=== PATIENT | female | born 2000 | race Caucasian/White ===

== ENCOUNTER 2022-03-21 13:39 | Emergency (ER) | payer MEDICAID, SELFPAY ==
[2022-03-21 13:53] VITALS: BP 121/71; PULSE 105; RESP 18; TEMP 36.7; O2SAT 99
--- NOTE | 2022-03-21 15:09 | W.ED.GENAD ---
Discharge Plan Disposition Patient Disposition: HOME Condition: Stable Discharge Details Clinical Impression: Nausea & vomiting Primary Care Provider: Unknown,Unknown ED Provider: Aravind Santos Home Meds and New Rx's Prescriptions: New nitrofurantoin monohyd/m-cryst [Macrobid] 100 mg capsule 100 mg PO Q12H 5 Days Qty: 10 0RF Rx Instructions: must administer with a meal/food pyridoxine (vitamin B6) [Vitamin B-6] 25 mg tablet 25 mg PO TID Qty: 30 0RF Continued ondansetron 4 mg tablet,disintegrating 1 tab PO PRN PRN Label Comments: DISSOLVE 1 TABLET IN MOUTH EVERY 4 TO 6 HOURS FOR 7 DAYS Discharge Instructions Instructions: Nausea and Vomiting in (ED) Additional Instructions: drink fluids to try and stay hydrated follow up as scheduled with your obgyn if you feel more ill, have worsening symptoms or severe pain return to the emergency department Medical Decision Making 21 yo g1 at approximately 18 weeks gestation comes in with chief complaint of n/v. She states almost her entire she has had n/v but has worsened over the past month. She sees Dr. Ana Lilia Soto at [facility] for her obgyn care and states she has been to [facility] a few times for similar symptoms. She denies any abdominal pain, fevers, dyspnea. She is in no distress on exam speaking in full sentences and has no abdominal tenderness. No vaginal bleeding or discharge. Her symptoms seems consistent with hyperemesis gravidarum and given lack of abdominal pain doubt surgical pathology such as cholecystitis, sbo, appendicits. Will treat with iv fluids, check ua for ketones and cmp for possible electrolyte abnormality and treat with metoclopramide as she has taken zofran with minimal relief. patient feeling better, tolerating po. Has some ketones in her urine but since she is now tolerating po do not feel d5 indicated. She does have bacteria in her urine, no urinary symptoms but given she is will treat with macrobid and add vitamin b6, she has f/u with obgyn , return precautions given Differential Diagnosis Differential Diagnosis: hyperemesis, morning sickness Lab Data Lab results reviewed: Yes I reviewed the patient's lab results. HPI General Mode of arrival: ambulatory. Date/Time Provider Initiated Documentation: 03/21/22 14:11. Limitations to Documentation: no limitations. Information obtained by: patient. History of Present Illness 21 year old F presents to the emergency department with the chief complaint of n/v, described as moderate, Patient started experiencing this month(s) (1) and it has been intermittent. No relieving factors improve symptom(s), No exacerbating factors reported . Patient notes no other symptoms.. Patient did receive the following treatments prior to arrival, none Related Data Home Medications Medication Instructions Recorded Confirmed nitrofurantoin 100 mg PO Q12H 5 days #10 caps 03/21/22 monohydrate/macrocrystals 100 mg capsule (Macrobid) ondansetron 4 mg disintegrating 1 tab PO PRN PRN 03/21/22 03/21/22 tablet pyridoxine (vitamin B6) 25 mg 25 mg PO TID #30 tabs 03/21/22 tablet (Vitamin B-6) Previous Rx's Medication Instructions Recorded nitrofurantoin 100 mg PO Q12H 5 days #10 caps 03/21/22 monohydrate/macrocrystals 100 mg capsule (Macrobid) pyridoxine (vitamin B6) 25 mg 25 mg PO TID #30 tabs 03/21/22 tablet (Vitamin B-6) General Stated Complaint: Nausea/Vomit/Diar BOO: 3 Review of Systems All systems reviewed & are unremarkable except as noted in HPI and below Constitutional Constitutional: Denies chills, Denies fever(s) and Denies weakness Cardiovascular Cardiovascular: Denies chest pain and Denies dyspnea Respiratory Respiratory: Denies cough and Denies dyspnea Gastrointestinal Gastrointestinal: Denies abdominal pain Genitourinary Genitourinary: Denies dysuria Neurologic Neurologic: Denies weakness PFSH All Active Problems (Updated 03/21/22 @ 17:39 by Aravind Santos MD) Nausea & vomiting (Acute) Social History Smoking/Tobacco Use Status: Never Smoking risk assessment performed?: Yes Drug use: Never Substance use type: does not use Do you feel safe at home: Yes Do you feel safe in your relationship?: Yes Exam Const General: no acute distress Orientation: alert HENMT Head: normal to inspection Ears: external ears normal General nose exam: external nose normal Mouth: moist mucous membranes Eyes General: appearance normal, both eyes and all related structures Neck Neck: normal visual inspection Resp Effort & Inspection: normal respiratory effort and able to speak in complete sentences Cardio Rate: regular rate GI Palpation: soft and nontender Skin General skin exam: no rashes or lesions noted Neuro General: patient alert and patient oriented x3 Extrem General: normal to inspection Psych Mental Status: mental status grossly normal Course Vital Signs Vital signs: Vital Signs Temperature 36.7 C 03/21/22 13:53 Pulse 105 H 03/21/22 13:53 Respiratory Rate 18 03/21/22 13:53 Blood Pressure 121/71 03/21/22 13:53 Pulse Oximetry 99 03/21/22 13:53 Temperature 36.7 C 03/21/22 13:53 Temperature Source Temporal Artery Scan 03/21/22 13:53 Pulse 105 H 03/21/22 13:53 Respiratory Rate 18 03/21/22 13:53 Blood Pressure 121/71 03/21/22 13:53 Blood Pressure Position Sitting 03/21/22 13:53 Pulse Oximetry 99 03/21/22 13:53 Oxygen Delivery Method Room Air 03/21/22 13:53 Oxygen Flow Rate 0 03/21/22 13:53
[2022-03-21] MEDS: Normal Saline 1,000 ML 1000 ML IV (15:13)
[2022-03-21] MEDS: Metoclopramide 10 MG/2 ML VIAL IVP (15:20)
[2022-03-21 15:29] LABS: Abs Immature Grans 0.05 10^3/uL (0.0-0.06); Absolute Basophil Count 0.03 10^3/uL (0.0-0.2); Absolute Eosinophil Count 0.12 10^3/uL (0.0-0.7); Absolute Lymphocyte Count 1.95 10^3/uL (1.2-3.4); Absolute Neutrophil Count 8.59 10^3/uL (1.2-6.7); Basophils % 0.3; HGB 11.9 g/dL (11.2-15.7); Immature Grans % 0.4; Lymphocytes % 16.9; MCH 26.2 pg (27.0-33.0); MCHC 31.3 % (32.0-36.0); MCV 84 fL (80-95); MPV 10.8 fL (8.0-11.0); Monocytes % 6.9; Neutrophils % 74.5; Platelet Count 315 10^3/uL (130-400); RBC 4.55 10^6/uL (3.93-5.22); RDW 14.1 % (11.7-14.6); RDW-SD 42.6 fL; WBC 11.53 10^3/uL (4.4-10.8)
[2022-03-21 15:37] LABS: ALT 23 U/L (14-59); AST 18 U/L (15-37); Alkaline Phosphatase 54 U/L (46-116); Anion Gap 10.8 mmol/L (3-11); BUN 6 mg/dL (7-18); Bilirubin, Total 0.3 mg/dL (0.2-1.0); CO2 22.2 mmol/L (21.0-32.0); CREATININE 0.6 mg/dL (0.55-1.02); Calcium 8.8 mg/dL (8.5-10.1); Chloride 104 mmol/L (98-107); Glucose 92 mg/dL (74-106); Magnesium 1.7 mg/dL (1.8-2.4); Potassium 3.8 mmol/L (3.5-5.1); Sodium 137 mmol/L (136-145); Total Protein 7.7 g/dL (6.4-8.2)
[2022-03-21 16:00] VITALS: BP 118/78; PULSE 101; RESP 18; O2SAT 99
[2022-03-21 16:22] LABS: Bilirubin Small (Negative); Blood Trace-intact (Negative); Clarity Clear (Clear); Glucose Negative (Negative); Ketones 80 mg/dL (Negative); Leukocyte Esterase Moderate (Negative); Nitrite Negative (Negative); Specific Gravity >= 1.030 (1.005-1.025)
[2022-03-21 16:40] LABS: WBC 20-50 HPF (0-5)
[2022-03-21 16:41] LABS: Bacteria Many HPF (Negative); C & S Indicated? No/Sq. Contamination; Casts Negative LPF (Negative); Crystals Negative HPF (Negative); Epithelial Cells Many HPF (Negative)
--- NOTE | 2022-03-21 17:05 | NUR.NOTE ---
Nursing Note: pT REPORTS FEELING MUCH BETTER AND NAUSEA RESOLVED AT THIS TIME. ADDITIONAL URINE SAMPLE REQUESTED D/T 1ST BEING CONTAMINATED.
--- NOTE | 2022-03-21 17:21 | NUR.NOTE ---
Nursing Note: PROVIDER AWARE PT UNABLE TO GIVE SECOND URINE. PT CURRENTLY BEING PO CHALLENGED, CONT. TO MONITOR.
[2022-03-21 17:25] VITALS: BP 115/78; PULSE 98; RESP 18; TEMP 37; O2SAT 99
[2022-03-21] MEDS: MacroBID 100 MG CAP PO (17:48)
[2022-03-21 18:03] VITALS: BP 113/64; PULSE 90; RESP 18; TEMP 36.9; O2SAT 99
== END 2022-03-21 17:58 | disposition home or self-care (01) ==
PROVIDERS: Emergency Provider Emergency Medicine
DX: O21.9 Vomiting of pregnancy, unspecified (principal); Z3A.18 18 weeks gestation of pregnancy; O99.891 Other specified diseases and conditions complicating pregnancy; R82.71 Bacteriuria; R82.4 Acetonuria
CPT/HCPCS: 36415; 80053; 96361; 96374; 99284; 81003; 81015; 83735; 85025; J2765

== ENCOUNTER → 2022-04-12 02:48 | Outpatient (CLI) | payer MEDICAID, SELFPAY ==
--- NOTE | 2022-04-12 | DI.US_ITS ---
Exam(s) US OB 2-3 TRIMESTER EXAM: US OB 2-3 TRIMESTER CLINICAL HISTORY: ANATOMY SCAN Z34.82. TECHNIQUE: Transabdominal obstetrical ultrasound performed. COMPARISON: No exams were available for comparison FINDINGS: Transabdominal obstetrical ultrasound performed. FINDINGS: Number of fetuses: 1 position: Cephalic heart rate: 136 bpm Placental location: There is a grade 1 posterior placenta. No evidence of previa. Amniotic fluid index: Within normal limits. ANATOMICAL SURVEY: Within normal limits. BIOMETRIC DATA: BPD: 5.4 cm-22 weeks 3 days HC: 19.11 cm=21 weeks 3 days AC: 16.5 cm=21 weeks 4 days FL: 4.01 cm=23 weeks Cisterna magna: 3.4mm Cerebellum: 2.02cm EFW: 476.65 g, 1 lb 1 oz, 93.8 % Composite Age: 22 weeks 1 day JAHAIRA:08/15/2022 Heart Rate:136 bpm IMPRESSION: 1. Single live intrauterine gestation as above. 2. Normal anatomic survey. DATA REPOSITORY:
== END ==
PROVIDERS: Visit Provider Family Medicine
DX: Z34.82 Encounter for supervision of other normal pregnancy, second trimester (principal)
CPT/HCPCS: 76805

== ENCOUNTER → 2022-07-07 00:22 | Outpatient (CLI) | payer MEDICAID, SELFPAY ==
--- NOTE | 2022-07-07 | DI.US_ITS ---
Exam(s) US OB MELITON WEIGHT EXAM: US OB MELITON WEIGHT CLINICAL HISTORY: SCREENING FOR MACROSOMIA Z36.88. COMPARISON: US US OB 2-3 TRIMESTER from 04/12/2022 TECHNIQUE: Transabdominal obstetrical ultrasound performed. FINDINGS: Sonographic images demonstrate a single intrauterine gestation in cephalic position. heart rate motion is Dopplered at: Bpm. Placenta: Posterior Amniotic fluid index: 11.5 cm. Largest pocket of fluid measures 3.5 cm. Amount of fluid is within nor mal limits. BPD 91 millimeters, 37+ 1 weeks, above the expected range. Head circumference 327 mm, 37+ 0 weeks, above the expected range. No hydrocephalus or other brain ab normality is visible. AC 295 millimeters, 33+3 weeks, at the low normal of the expected range. Femur length 64 millimeters, 33+ 0 weeks, at the low normal of expected range. Composite Biometric measurements correspond to 35 weeks 1 day, at the upper limits of normal of predi cted gestational age, as on the prior exam, with normal interval growth since prior exam. Estimated weight 44 percent. IMPRESSION: Single live intrauterine gestation as above. DATA REPOSITORY:
--- OUTSIDE RECORDS SUMMARY | 2022-07-07 00:25 | XMS_ITS | Encounter Summary ---
:2000 Author Organization [facility] Address [address] [place] [address] Care Team Providers Name Role Phone Unknown, Provider Primary Care Provider Encounter Details Date Type Department Care Team Description 01/11/2018 Historical Results [facility] - Rubina Mazariegos, Only [facility] DPM Results [address] [place] [address] [address] [place], [place] [address] (Wo rk) Social History Tobacco Use Types Packs/Day Years Used Date Smoking Tobacco: Never Assessed Sex Assigned at Date Recorded Not on file documented as of this encounter Plan of Treatment Not on filedocumented as of this encounter Procedures Procedure Name Priority Date/Time Associated Diagnosis Comme nts MR FOOT W WO 01/11/2018 15:07 Results for this CONTRAST LEFT EDT procedure are in the results section. documented in this encounter Results MR FOOT W WO CONTRAST LEFT (01/11/2018 15:07 EDT) Anatomical Region Laterality Modality Lower Extremities Left Other Specimen (Source) Anatomical Collection Method Collection Time Re ceived Time Location / / Volume Laterality 01/11/2018 15:07 EDT Narrative 01/11/2018 15:10 EDT ? EXAM: MAGNET[facility]ONANCE IMAGING/FOOT LT ??EX. D/ (1420) ? CLINICAL INFORMATION: ? L03.032 PARONCHIA OF TOE OF LEFT FOOT ? R/O OSTEOMYELITIS OF LEFT HALLUX ? FOOT LT WO/W CONTRAST ? Signs and Symptoms/Comments: L03. 032 PARONYCHIA OF TOE OF LEFT FOOT, ? R/O OSTEOMYELITIS OF LEFT HALLUX ? Comparison: Radiographs on 01/05/20 18. ? Technique: Contrast-enhanced MR o f the left foot was performed with ? the following sequences: Sagittal T1, sagittal STIR, coronal T1, ? coronal STIR, axial T1, axial STI R, and post gadolinium triplane T1 ? fat-sat. The [id number] was op timized for evaluation of the ? forefoot. 20 cc Magnevist intrave nous contrast were administered. ? FINDINGS: ? Bones: Focal soft tissue edema an d enhancement are present along the ? dorsal aspect of the great toe at the level of the toenail (sagittal ? STIR image 5). Mild bone marrow e jaja is present in the underlying ? 1st distal phalanx, greatest in t he tuft (axial STIR image 12). There ? is subtle loss of T1 signal in th e tuft of the 1st distal phalanx, ? greatest medially, corresponding to erosive changes on the preceding ? radiographs (axial T1 images 12, sagittal T1 image 6). These findings ? are suspicious for focal osteomye litis. No abnormal marrow signal is ? identified in the 1st proximal ph alanx or 1st metatarsal. ? Joints: The alignment of the fore foot is unremarkable. No joint ? effusion is identified. No signif icant degenerative changes are ? visible. The Lisfranc osteoligame ntous complex appears grossly ? intact. ? Soft tissues: Soft tissue swellin g along the dorsal aspect of the ? distal great toe is suspicious fo r cellulitis/soft tissue infection. ? No drainable or rim-enhancing flu id collection is identified. The ? visible portions of the major fle xor and extensor tendons appear ? grossly intact. ? IMPRESSION: ? 1. ??Focal marrow signal changes in the tuft of the 1st distal phalanx ? suspicious for osteomyelitis. ? 2. ??Soft tissue edema and enhanc ement along the dorsal aspect of the ? distal great toe, compatible with the provided history of soft tissue ? infection/paronychia. ? PAGE 1 ? Trina d Report ? (CONTINUED) ? 3. ??Additional findings detailed above. ? REPORT SIGNED IN OTHER VENDOR SYSTEM 01/11/2018 ?Reported B y: Greg Ly MD ? CC: Nkechi Mazariegos DPM ? Transcribed Date/Time: 01/11/2018 (1510) ? Circuit Recorder: ? Printed Date/Time: 01/24/2019 (12 33) ? PAGE 2 ? Trina d Report ? Procedure Note Greg Ly MD - 06/12/2019Format ting of this note might be different from the original. EXAM: MAGNETIC RESONANCE IMAGING/FOOT L T EX. D/ (1420) CLINICAL INFORMATION: L03.032 PARONCHIA OF TOE OF LEFT FOOT R/O OSTEOMYELITIS OF LEFT HALLUX FOOT LT WO/W CONTRAST Signs and Symptoms/Comments: L03.032 PA RONYCHIA OF TOE OF LEFT FOOT, R/O OSTEOMYELITIS OF LEFT HALLUX Comparison: Radiographs on 01/04/2018. Technique: Contrast-enhanced MR of the left foot was performed with the following sequences: Sagittal T1, s agittal STIR, coronal T1, coronal STIR, axial T1, axial STIR, and post gadolinium triplane T1 fat-sat. The [id number] was optimize d for evaluation of the forefoot. 20 cc Magnevist intravenous c ontrast were administered. FINDINGS: Bones: Focal soft tissue edema and enha ncement are present along the dorsal aspect of the great toe at the l evel of the toenail (sagittal STIR image 5). Mild bone marrow edema i s present in the underlying 1st distal phalanx, greatest in the tuf t (axial STIR image 12). There is subtle loss of T1 signal in the tuft of the 1st distal phalanx, greatest medially, corresponding to ero sive changes on the preceding radiographs (axial T1 images 12, sagitt al T1 image 6). These findings are suspicious for focal osteomyelitis. No abnormal marrow signal is identified in the 1st proximal phalanx or 1st metatarsal. Joints: The alignment of the forefoot i s unremarkable. No joint effusion is identified. No significant degenerative changes are visible. The Lisfranc osteoligamentous complex appears grossly intact. Soft tissues: Soft tissue swelling karel g the dorsal aspect of the distal great toe is suspicious for cell ulitis/soft tissue infection. No drainable or rim-enhancing fluid col lection is identified. The visible portions of the major flexor an d extensor tendons appear grossly intact. IMPRESSION: 1. Focal marrow signal changes in the t uft of the 1st distal phalanx suspicious for osteomyelitis. 2. Soft tissue edema and enhancement al main the dorsal aspect of the distal great toe, compatible with the p rovided history of soft tissue infection/paronychia. PAGE 1 Signed Report (CONTINUED) 3. Additional findings detailed above. REPORT SIGNED IN OTHER VENDOR SYSTEM 01/11/2018 Reported By: Greg Ly MD CC: Nkechi Mazariegos DPM Transcribed Date/Time: 01/11/2018 (9153 ) Circuit Recorder: Printed Date/Time: 01/24/2019 (7968) PAGE 2 Signed Report Nkechi Mazariegos DPM IMG MRI ORDERABLES documented in this encounter Visit Diagnoses Not on filedocumented in this encounter Care Teams Crisis Nurse Relationship Specialty Start Date End Date Unknown, Provider, PCP - General 01/04/18 07/01/19 documented as of this encounter
--- OUTSIDE RECORDS SUMMARY | 2022-07-07 00:25 | XMS_ITS | Encounter Summary ---
:2000 Author Organization [facility] Address [address] [place] [address] Care Team Providers Name Role Phone KellyIda mooney [employer] MECHANIC Primary Care Provider Encounter Details Date Type Department Care Team Description 05/16/2021 Results Only Imaging [facility] [place]arro Garza, [facility] Cardiology Clin ic [address] [place] [address] [place], [place] [phone] (Wo rk) Social History Tobacco Use Types Packs/Day Years Used Date Smoking Tobacco: Never Smokeless Tobacco: Never Sex Assigned at Date Recorded Not on file documented as of this encounter Plan of Treatment Not on filedocumented as of this encounter Procedures Procedure Name Priority Date/Time Associated Diagnosis Comme nts EKG 12-LEAD 05/16/2021 11:22 EDT Results for this procedure are i n the results section . documented in this encounter Results EKG 12-LEAD (05/16/2021 11:22 EDT) Specimen (Source) Anatomical Collection Method Collection Time Re ceived Time Location / / Volume Laterality 05/16/2021 11:22 EDT Narrative [facility] - 021 11:22 EDT ? [facility] ? Test Date: ?2021-05-16 11:22:40 Pat Name: ? SILVIA MANJINDER ?Department: ?Room: ? Gender: ? F ?Filling Layer Up: ?? RD : ?2000 ? Requested By: Order Number: ?Reading MD: ?? Chuck Leal, MD ? Measurements Intervals ?Lugoff ? Rate: ? 82 ? P: ?39 VT: ? 140 ?QRS: ?46 QRSD: ? 92 ? T: ?20 QT: ? 360 ? QTc: ?420 ? Interpretive Statements Normal sinus rhythm Normal ECG No previous ECG available for comparison Electronically Signed On 05-16-2021 12:4 3:56 EDT by Chuck Leal MD [email or web address] Procedure Note Chuck Leal MD - 05/16/2021Formatti ng of this note might be different from the original. [facility] Test Date: 2021-05-16 11:22:40 Pat Name: SILVIA TAN Department: Room: Gender: F Filling Layer Up: MUKESH : 2000 Requested By: Order Number: Reading MD: Chuck Leal MD Measurements Intervals Lugoff Rate: 82 P: 39 VT: 140 QRS: 46 QRSD: 92 T: 20 QT: 360 QTc: 420 Interpretive Statements Normal sinus rhythm Normal ECG No previous ECG available for comparison Electronically Signed On 05-16-2021 12:4 3:56 EDT by Chuck Leal MD [email or web address] Greg Garza MD CARDIAC ECG ORDERABLES Performing Organization Address City/State/ZIP Code Phon e Number [facility] [address] [facility] [place] [address] documented in this encounter Visit Diagnoses Not on filedocumented in this encounter Care Teams Professor Of Nursing Relationship Specialty Start Date End Date Ida Mendoza NP PCP - General 02/24/[address] [place] [address] documented as of this encounter
--- OUTSIDE RECORDS SUMMARY | 2022-07-07 00:25 | XMS_ITS | Clinical Summary ---
:2000 Author Organization [facility] Address [address] [place] [address] Care Team Providers Name Role Phone KellyIda Ronald PLASTER MAKER Primary Care Provider Allergies Active Allergy Reactions Severity Noted Date Comments Other - See Comments Hives High 07/03/2018 Cold Te mpertures Medications Medication Sig Dispensed Refills Start Date End Date Status cetirizine (ZYRTEC) 1 tab(s) orally 0 Active 10 mg tablet once a day EPINEPHrine (EPIPEN as directed 0 Active JR) 0.15 mg/0.3 mL injection etonogestreL Insert 68 mg 0 Acti ve (NEXPLANON) 68 mg subdermally once. subdermal implant ferrous sulfate 325 0 01/28/2021 Active mg (65 mg iron) tablet INCASSIA 0.35 mg 0 02/03/2021 Ac tive tablet Active Problems Problem Noted Date Family history of melanoma 05/11/2016 Surgical History Surgery Date Site/Laterality Comments FOOT SURGERY left hallux bone removal Social History Tobacco Use Types Packs/Day Years Used Date Smoking Tobacco: Never Smokeless Tobacco: Never Sex Assigned at Date Recorded Not on file Obstetrics History Last Filed Vital Signs Vital Sign Reading Time Taken Comments Blood Pressure 103/68 02/24/2021 1922 EDT Pulse 115 02/24/2021 1454 EDT Temperature 37.1 ??C (98.8 ??F) 02/24/2021 1454 EDT Respiratory Rate 17 02/24/2021 1454 EDT Oxygen Saturation 100% 02/24/2021 1922 EDT Inhaled Oxygen Concentration - - Weight 104.3 kg (230 lb) 02/24/2021 1454 EDT Height - - Body Mass Index - - Plan of Treatment Health Maintenance Due Date Last Done Comments Hepatitis C Screen 2000 Social Determinants Of Health (SDOH) 2000 COVID-19 Vaccine (#1) 02/22/1999 HPV Vaccines (1 - 2-dose series) 2009 Behavioral Health Screen 2010 Chlamydia Screening 2014 HIV Screening 2014 Advance Directive 2016 Preventive Care Visit 2016 Pertussis (Adult) Immunization 2017 Tetanus (Adult) Immunization 2017 Cervical Cancer Screening 2019 Influenza Immunization (Adult) (#1) 2022 Insurance Payer Benefit Plan / Subscriber ID Effective Phone Address T ype Group Dates [place]ICAID [place] [id number] 2020-Pres [address] [place] [id number] Silvia Tan Personal/Family Self 2000 [address] [place] [address] Silvia Tan Personal/Family Self 2000 [address]) [place] [address] Silvia Tan Personal/Family Self 2000 [address]) [place] [address] Silvia Tan Personal/Family Self 2000 [address]Home) [place] [address] Silvia Tan Personal/Family Self 2000 [address]Home) [place] [address] Silvia Tan Personal/Family Self 2000 [address]Home) [place] [address] Silvia Tan Personal/Family Self 2000 [address]Home) [place] [address] Care Teams Change Of Address Clerk Relationship Specialty Start Date End Date Ida Mendoza NP PCP - General 02/24/21 [address] [place] [address]
--- OUTSIDE RECORDS SUMMARY | 2022-07-07 00:25 | XMS_ITS | Encounter Summary ---
:2000 Author Organization [facility] Address [address] [place] [address] Care Team Providers Name Role Phone Ida Mendoza CRM ANALYST Primary Care Provider Reason for Visit Reason Comments Emesis Reports emesis x 3 since 053 0 AM. States unable to keep down PO fluids. Denies abdominal pain. Reports norm al elimination of bowel and bladder. Encounter Details Date Type Department Care Team Description 02/24/2021 Emergency [facility] Frankie Roberto Non-in tractable Emergency Department Laurie Rangel vomiting with nausea, - [facility] [address] [facility] unspecified vomiting [address] [facility] type (Primary Dx) [place] [address] [address], [place] [id number] (Wo rk) Social History Tobacco Use Types Packs/Day Years Used Date Smoking Tobacco: Never Smokeless Tobacco: Never Sex Assigned at Date Recorded Not on file COVID-19 Exposure Response Date Recorded In the last month, have you been in contact with No / Unsure 02/24/2021 14:55 EDT someone who was confirmed or suspected to have Coronavirus / COVID-19? documented as of this encounter Last Filed Vital Signs Vital Sign Reading Time Taken Comments Blood Pressure 103/68 02/24/2021 1922 EDT Pulse 115 02/24/2021 1454 EDT Temperature 37.1 ??C (98.8 ??F) 02/24/2021 1454 EDT Respiratory Rate 17 02/24/2021 1454 EDT Oxygen Saturation 100% 02/24/2021 1922 EDT Inhaled Oxygen Concentration - - Weight 104.3 kg (230 lb) 02/24/2021 1454 EDT Height - - Body Mass Index - - documented in this encounter Discharge Instructions Discharge InstructionsWolFrankie sood MD - 02/24/2021 19:14 EDT Drink plenty of fluids to stay well-hydrated. May use Zofran 1 tab every 8 hours as needed for nausea. Follow-up with your primary care physician as needed. Return to the Emergency Department (ED) if your condition worsens, does not improve as expected, or other new concerns arise. Specifically return if you have new or uncontrolled pain, high fever, difficulty breathing, vomiting and unable to keep down fluids or medications, or any other concerns. documented in this encounter Medications at Time of Discharge Medication Sig Dispensed Refills Start Date End Date cetirizine (ZYRTEC) 10 1 tab(s) orally once a 0 mg tablet day EPINEPHrine (EPIPEN JR) as directed 0 0.15 mg/0.3 mL injection etonogestreL (NEXPLANON) Insert 68 mg 0 68 mg subdermal implant subdermally once. ferrous sulfate 325 mg 0 01/28/2021 (65 mg iron) tablet INCASSIA 0.35 mg tablet 0 02/03/2021 documented as of this encounter Discharge Disposition Disposition Code Departure Means Destination Home or Self [facility] documented in this encounter ED Notes Frankie Roberto MD - 02/24/2021 1713 EDT DOS: 02/24/2021 Scribe Attestation: This documentation is recorded by Bozena Rutherford acting as Scribe under the direction and presence of Frankie Roberto MD. Frankie Roberto MD: I personally performed the services recorded by the scribe in my presence. I confirm the scribe's documentation has been reviewed by me to accurately and completely record my work, treatment, procedures, and medical decision making. Chief Complaint Chief Complaint Patient presents with ??? Emesis Reports emesis x 3 since 0530 AM. States unable to keep down PO fluids. Denies abdominal pain. Reports normal elimination of bowel and bladder. HPI Silvia L Britney is a pleasant 20 y.o. female who presents to the ED today with a chief complaint of emesis. Patient notes that she has vomited 3 times since 0530 this morning and cannot keep anything down. She notes that she felt fine yesterday. Patient denies any chance of and endorses a negative test 3 months ago, after her last sexual activity. She states that she has not had any prolonged exposure to heat. The patient has no significant past medical history. Patient presents to the ED with complaints of vomiting, aching from the waist down, chills. Patient denies hematemesis, diarrhea, fever, chest pain, SOB, abdominal pain, calf pain, or any other complaints. History was provided by: patient, medical records Patient's pertinent PMH, FH, and SH were reviewed and updated PRN. ROS Review of Systems Constitutional: Positive for chills. Negative for fever. Respiratory: Negative for shortness of breath. Cardiovascular: Negative for chest pain. Gastrointestinal: Positive for vomiting. Negative for abdominal pain and diarrhea. Negative for hematemesis Musculoskeletal: Positive for aching from the waist down. Negative for calf pain All other systems reviewed and are negative. The patient???s past medical, family, and social history was reviewed and updated as needed. Allergies Allergen Reactions ??? Other - See Comments Hives Cold Tempertures Physical Exam Vital Signs Vitals Reassessment?: Yes Temp: 37.1 ??C (98.8 ??F) Temp src: Temporal Pulse: (!) 115 Heart Rate: (!) 115 BPM Resp: 17 SpO2: 99 % BP: 105/86 BP MAP: 89 mm Hg BP Device: BP Machine BP Patient Position: Sitting BP Cuff Location: Left arm O2 Device: None (Room air) Physical Exam Vitals and nursing note reviewed. Constitutional: Appearance: Normal appearance. She is well-developed. HENT: Head: Normocephalic and atraumatic. Nose: Nose normal. Eyes: General: No scleral icterus. Pupils: Pupils are equal, round, and reactive to light. Cardiovascular: Rate and Rhythm: Regular rhythm. Tachycardia present. Pulses: Normal pulses. Heart sounds: Normal heart sounds. Pulmonary: Effort: Pulmonary effort is normal. No respiratory distress. Breath sounds: Normal breath sounds. No stridor. No wheezing, rhonchi or rales. Abdominal: General: Abdomen is flat. There is no distension. Palpations: Abdomen is soft. Tenderness: There is no abdominal tenderness. There is no guarding. Musculoskeletal: General: Normal range of motion. Cervical back: Normal range of motion and neck supple. Right lower leg: No edema. Left lower leg: No edema. Skin: General: Skin is warm and dry. Findings: No rash. Neurological: Mental Status: She is alert and oriented to person, place, and time. Psychiatric: Mood and Affect: Mood normal. Behavior: Behavior normal. Laboratory Results Labs Reviewed COMPLETE BLOOD COUNT AND DIFFERENTIAL - Abnormal Result Value Status WBC 8.16 Final RBC 4.56 Final Hemoglobin 11.9 Final HCT 37.8 Final MCV 83 Final MCH 26.1 (*) Final MCHC 31.5 (*) Final RDW-CV 13.4 Final RDW-SD 40.5 Final PLT 276 Final MPV 10.9 Final Neutrophils 78.7 Final Lymphocytes 12.3 Final Monocytes 7.4 Final Eosinophils 0.7 Final Basophils 0.5 Final Immature Grans 0.4 Final Absolute Neutrophils 6.43 Final Absolute Lymphocytes 1.00 (*) Final Absolute Monocytes 0.60 Final Absolute Eosinophils 0.06 Final Absolute Basophils 0.04 Final Absolute Immature Grans 0.03 Final Type of Differential: Auto Final COMPREHENSIVE METABOLIC PANEL (CMP) - Abnormal Sodium 141 Final Potassium 4.2 Final Chloride 108 Final CO2 Total 21 (*) Final Glucose 93 Final BUN 8 (*) Final Creatinine 0.54 Final eGFR 134 Final Total Protein 7.7 Final Albumin 4.5 Final Alkaline Phosphatase 60 Final AST 20 Final ALT 13 Final Bilirubin, Total <0.5 Final Calcium 9.5 Final Calculated Calcium 9.1 Final URINE SEDIMENT (MICRO) WITH REFLEX TO CULTURE - Abnormal Urine RBC Count, Auto 3 - 10 (*) Final Urine WBC Count, Auto >50 (*) Final Urine Squamous Count, Auto Moderate (*) Final Urine Hyaline Cast Count, Auto <=10 Final Urine Bacteria Count, Auto None Seen Final UA Small Round Cells Few Transitional Epithelial Cells (*) Final Narrative: A Urine Culture test has been reflexively ordered based on result criteria from the Urine Sediment Analysis. Urine Sediment Analysis results are unreliable on urines that are unrefrigerated for >2 hrs or refrigerated >8 hrs. POCT URINE DIPSTICK, CLINITEK - Abnormal Color, UA Yellow Final Clarity, UA Clear Final Glucose, UA Negative Final Bilirubin, UA Negative Final Ketones, UA Trace (*) Final Specific [place], Urine 1.020 Final Blood, UA 2+ (*) Final pH, UA 8.5 (*) Final Protein, UA 2+ (*) Final Urobilinogen, UA 0.2 Final Nitrite, UA Negative Final Leuk Esterase 2+ (*) Final HN LAB COMMENT (CLINITEK, UR) Test performed at Emergency Department Final LIPASE - Normal Lipase 113 Final BACTERIAL CULTURE, URINE EXTRA BLOOD DRAW (RAINBOW) Narrative: The following orders were created for panel order EXTRA BLOOD DRAW (RAINBOW). Procedure Abnormality Status --------- ------ HOLD GREEN TOP[[id number]] Final result HOLD LAVENDER TOP[[id number]] Final result HOLD SST[[id number]] Final result Please view results for these tests on the individual orders. HOLD GREEN TOP Hold Hold Final HOLD LAVENDER TOP Hold Hold Final HOLD SST Hold Hold Final POCT TEST, CLINITEK ORDER Narrative: The following orders were created for panel order POCT TEST, CLINITEK ORDER. Procedure Abnormality Status --------- ------ POCT TEST, CLI...[[id number]] Final result POCT CSN BARCODE URINE P...[[id number]] Final result Please view results for these tests on the individual orders. POCT URINE CLINITEK (DIPSTICK) - DOES NOT REFLEX Narrative: The following orders were created for panel order POCT URINE CLINITEK (DIPSTICK) - DOES NOT REFLEX. Procedure Abnormality Status --------- ------ POCT URINE DIPSTICK, CLI...[[id number]] Abnormal Final result POCT CSN BARCODE URINE D...[[id number]] Final result Please view results for these tests on the individual orders. POCT CSN BARCODE URINE PREG TEST POCT CSN BARCODE URINE DIPSTICK POCT TEST, CL[facility]ITEK UPT Result Negative Final HN LAB COMMENT (CLINITEK, UPT) Test performed at Emergency Department Final Patient had labs that were reviewed independently by myself, significant for CBC normal, CO2 21, chemistry otherwise normal, LFTs normal, lipase normal, urine test negative, >50 white cells with moderate squamous cells and no bacteria Procedures Procedures ED Course A medical screening was performed. The patient is a 20 y.o. female who presents to the ED with emesis. Physical exam was significant for tachycardic. Lungs CTAB. No bilateral leg swelling . Differential diagnosis includes but is not limited to dehydration, viral GI illness, electrolyte abnormality, UTI, . 1914: Hydrated with 1 L lactated ringers bolus. 190: On reevaluation, patient feels improved after IV fluid hydration. She declined Zofran and would like to go home. Patient discharged home with urine culture pending and Zofran starter pack and advised to follow up with her PCP. Prior to discharge usual and customary precautions were reviewed with the patient and/or family including follow-up instructions and reasons to return to the Emergency Department if condition worsens, does not improve as expected, or other new concerns arise. Final diagnoses: Non-intractable vomiting with nausea, unspecified vomiting type MDM MDM Number of Diagnoses or Management Options Non-intractable vomiting with nausea, unspecified vomiting type Diagnosis management comments: 4 Amount and/or Complexity of Data Reviewed Clinical lab tests: ordered and reviewed Patient Progress Patient progress: improved Disposition Discharged The patient's pain was managed to an adequate level weighing risk vs. Benefit of further medications. At the end of my care of this patient, the patient's pain was 0 on a zero to ten scale. Any further pain treatment will be at the discretion of the provider following up with the patient based on their clinical assessment. The patient's condition at the end of my care: Stable Kristel Schulz RN - 02/24/2021 5744 EDT Chief Complaint Patient presents with ??? Emesis Reports emesis x 3 since 0530 AM. States unable to keep down PO fluids. Denies abdominal pain. Reports normal elimination of bowel and bladder. documented in this encounter Plan of Treatment Not on filedocumented as of this encounter Procedures Procedure Name Priority Date/Time Associated Comments Diagnosis URINE SEDIMENT STAT 02/24/2021 17:56 Results f or this (MICRO) WITH REFLEX EDT procedur e are in TO CULTURE the results section. BACTERIAL CULTURE, Today 02/24/2021 17:56 Resul ts for this URINE EDT procedure are i n the results section. POCT TEST, STAT 02/24/2021 17:31 Res ults for this CLINITEK EDT procedure are i n the results section. POCT URINE DIPSTICK, STAT 02/24/2021 17:30 Res ults for this CLINITEK EDT procedure are i n the results section. POCT CSN BARCODE STAT 02/24/2021 17:28 URINE PREG TEST EDT POCT TEST, STAT 02/24/2021 17:28 Res ults for this CLINITEK ORDER EDT procedure are in the results section. POCT CSN BARCODE STAT 02/24/2021 17:28 URINE DIPSTICK EDT POCT URINE CLINITEK STAT 02/24/2021 17:28 Resu lts for this (DIPSTICK) - DOES NOT EDT proced ure are in REFLEX the results section. HOLD SST Routine 02/24/2021 16:55 Results for this EDT procedure are i n the results section. HOLD LAVENDER TOP Routine 02/24/2021 16:55 Result s for this EDT procedure are i n the results section. HOLD GREEN TOP Routine 02/24/2021 16:55 Results f or this EDT procedure are i n the results section. EXTRA BLOOD DRAW Routine 02/24/2021 16:55 Results for this (RAINBOW) EDT procedure are i n the results section. COMPLETE BLOOD COUNT STAT Add-on 02/24/2021 16:55 Res ults for this AND DIFFERENTIAL EDT procedure a re in the results section. LIPASE STAT Add-on 02/24/2021 16:55 Results for this EDT procedure are i n the results section. COMPREHENSIVE STAT Add-on 02/24/2021 16:55 Results fo r this METABOLIC PANEL (CMP) EDT proced ure are in the results section. documented in this encounter Results BACTERIAL CULTURE, URINE (02/24/2021 17:56 EDT) [facility] Method Time Signature Organism ID Less than 02/26/2021 [facility] 10,000 CFU/ml 10:59 EDT CENTER Usual LABORATORY urogenital SERVICES unruly. Specimen Anatomical Collection Method Collection Time Receive d Time (Source) Location / / Volume Laterality Urine URINE SPECIMEN Urine Collect / 02/24/2021 17:56 2020 COLLECTION, CLEAN Unknown EDT 18:21 EDT CATCH / Unknown Frankie Roberto MD MICROBIOLOGY - [facility] Performing Organization Address City/[facility]/ZIP Code Phon e Number [facility] [address] [place] [address] SERVICES (ABNORMAL) URINE SEDIMENT (MICRO) WITH REFLEX TO CULTURE (02/24/2021 17:56 EDT) [facility] Method Time Signature Urine RBC 3 - 10 (A) 0 - 2 02/24/2021 [facility] Count, Auto Cells/HPF 18:21 EDT CENTER LABORATORY SERVICES Urine WBC >50 (A) 0 - 3 02/24/2021 [facility] Count, Auto Cells/HPF 18:21 EDT CENTER LABORATORY SERVICES Urine Moderate (A) None Seen 02/24/2021 [facility] Squamous Cells/HPF 18:21 EDT CENTER Count, Auto LABORATORY SERVICES Urine Hyaline <=10 <=10 02/24/2021 [facility] Cast Count, Casts/LPF 18:21 EDT CENTER Auto LABORATORY SERVICES Urine None Seen None Seen 02/24/2021 [facility] Bacteria Bacteria/ 18:21 EDT CENTER Count, Auto HPF LABORATORY SERVICES UA Small Few Transitional None Seen 02/24/2021 [facility] Round Cells Epithelial Cells per HPF 18:21 EDT CENTER (A) LABORATORY SERVICES Specimen Anatomical Collection Method Collection Time Receive d Time (Source) Location / / Volume Laterality Urine URINE SPECIMEN Urine Collect / 02/24/2021 17:56 2020 COLLECTION, CLEAN Unknown EDT 18:01 EDT CATCH / Unknown Narrative [facility] SERVICES - 02/24/2021 18:21 EDT A Urine Culture test has been reflexively ordered based on result criteria from the Urine Sediment Analysis. Urine Sediment Analysis results are unre liable on urines that are unrefrigerated for >2 hrs or refrigerated >8 hrs. Frankie Roberto MD URINALYSIS ORDERABLES Performing Organization Address City/[facility]/ZIP Code Phon e Number [facility] [address] [place] [address] SERVICES POCT TEST, CLINITEK (02/24/2021 17:31 EDT) [facility] Method Time Signature UPT Result Negative Negative 02/24/2021 [facility] 17:37 EDT CENTER LABORATORY SERVICES HN LAB Test performed 02/24/2021 [facility] COMMENT at Emergency 17:37 EDT CENTER ([facility], Department LABORATORY UPT) SERVICES Comment: False negative results may occu r in women who are beyond 5-8 weeks gestation. Diagnosis of should be based on a correlation of test results with typical clinical signs and symptoms . Specimen Anatomical Collection Method Collection Time Receive d Time (Source) Location / / Volume Laterality Urine URINE SPECIMEN 02/24/2021 17:31 COLLECTION, CLEAN EDT 17:37 EDT CATCH / Unknown Frankie Roberto MD POINT OF CARE TEST ORDERABL ES Performing Organization Address City/State/ZIP Code Phon e Number [facility] [address] [place] [address] SERVICES (ABNORMAL) POCT URINE DIPSTICK, CLINITEK (02/24/2021 17:30 EDT) [facility] Method Time Signature Color, UA Yellow Yellow 02/24/2021 [facility] 17:32 T CENTER LABORATORY SERVICES Clarity, UA Clear Clear 02/24/2021 [facility] 17:32 [facility] LABORATORY SERVICES Glucose, UA Negative Negative 02/24/2021 [facility] mg/dL 17:32 [facility] LABORATORY SERVICES Bilirubin, UA Negative Negative 02/24/2021 [facility] 17:32 T CENTER LABORATORY SERVICES Ketones, UA Trace (A) Negative 02/24/2021 [facility] mg/dL 17:32 [facility] LABORATORY SERVICES Specific 1.020 1.001 - 02/24/2021 [facility] [place], 1.035 17:32 [facility] Urine LABORATORY SERVICES Blood, UA 2+ (A) Negative 02/24/2021 [facility] 17:32 [facility] LABORATORY SERVICES pH, UA 8.5 (A) <=8 02/24/2021 [facility] 17:32 T CENTER LABORATORY SERVICES Protein, UA 2+ (A) Negative 02/24/2021 [facility] mg/dL 17:32 [facility] LABORATORY SERVICES Urobilinogen, 0.2 0.2 - 1.0 02/24/2021 [facility] UA EU/dL 17:32 EDT CENTER LABORATORY SERVICES Nitrite, UA Negative Negative 02/24/2021 [facility] 17:32 T CENTER LABORATORY SERVICES Leuk Esterase 2+ (A) Negative 02/24/2021 [facility] 17:32 EDT CENTER LABORATORY SERVICES HN LAB Test performed 02/24/2021 [facility] COMMENT at Emergency 17:32 EDT CENTER (CL[facility], Department LABORATORY UR) SERVICES Specimen Anatomical Collection Method Collection Time Receive d Time (Source) Location / / Volume Laterality Urine URINE SPECIMEN 02/24/2021 17:30 COLLECTION, CLEAN EDT 17:32 EDT CATCH / Unknown Frankie Roberto MD POINT OF CARE TEST ORDERABL ES Performing Organization Address [facility]/ZIP Code Phon e Number [facility] [address] [place] [address] SERVICES POCT CSN BARCODE URINE DIPSTICK (02/24/2021 17:28 EDT) Specimen Anatomical Collection Method Collection Time Receive d Time (Source) Location / / Volume Laterality Urine URINE SPECIMEN Urine Collect / 02/24/2021 17:28 2020 COLLECTION, CLEAN Unknown EDT 17:28 EDT CATCH / Unknown Frankie Roberto MD LAB INFO SERVICE AND SUPPOR T & PHONE RESULT Performing Organization Address [facility]/ZIP Code Phon e Number [facility] [address] [place] [address] SERVICES POCT CSN BARCODE URINE PREG TEST (02/24/2021 17:28 EDT) Specimen Anatomical Collection Method Collection Time Receive d Time (Source) Location / / Volume Laterality Urine URINE SPECIMEN Urine Collect / 02/24/2021 17:28 2020 COLLECTION, CLEAN Unknown EDT 17:28 EDT CATCH / Unknown Frankie Roberto MD LAB INFO SERVICE AND SUPPOR T & PHONE RESULT Performing Organization Address [facility]/ZIP Code Phon e Number [facility] [address] [place] [address] SERVICES LIPASE (02/24/2021 16:55 EDT) athologist Signature Lipase 113 <251 U/L 02/24/2021 [facility] 17:30 EDT CENTER LABORATORY SERVICES Specimen Anatomical Collection Method / Collection Time Recei andre Time (Source) Location / Volume Laterality Blood VENOUS BLOOD / Venipuncture / 02/24/2021 16:55 021 Unknown Unknown EDT 16:58 EDT Frankie Roberto MD CHEMISTRY & BLOOD GAS ORDER LUIS ENRIQUE Performing Organization Address City/State/ZIP Code Phon e Number [facility] [address] [place] [address] SERVICES (ABNORMAL) COMPREHENSIVE METABOLIC PANEL (CMP) (02/24/2021 16:55 EDT) athologist Signature Sodium 141 136 - 145 02/24/2021 [facility] mEq/L 17:30 [facility] LABORATORY SERVICES Potassium 4.2 3.5 - 5.0 02/24/2021 [facility] mEq/L 17:30 [facility] LABORATORY SERVICES Chloride 108 96 - 110 02/24/2021 [facility] mEq/L 17:30 [facility] LABORATORY SERVICES CO2 Total 21 (L) 22 - 32 02/24/2021 [facility] mEq/L 17:30 [facility] LABORATORY SERVICES Glucose 93 70 - 100 02/24/2021 [facility] mg/dL 17:30 [facility] LABORATORY SERVICES BUN 8 (L) 10 - 26 02/24/2021 [facility] mg/dL 17:30 [facility] LABORATORY SERVICES Creatinine 0.54 0.52 - 1.04 02/24/2021 [facility] mg/dL 17:30 [facility] LABORATORY SERVICES eGFR 134 >60 02/24/2021 [facility] mL/min/1.73 17:30 ED CENTER m2 LABORATORY SERVICES Comment: eGFR calculated using CKD-EPI e quation for non- Americans. Multiply eGFR by 1.16 for patien ts. Total Protein 7.7 6.3 - 8.2 g/dL 02/24/2021 17:30 EDT [facility] SERVICES Albumin 4.5 3.4 - 4.9 g/dL 02/24/2021 17:30 EDT [facility] SERVICES Alkaline Phosphatase 60 38 - 126 U/L 02/24/2021 17:30 EDT [facility] SERVICES AST 20 15 - 46 U/L 02/24/2021 17:30 EDT [facility] LABORATORY SERVICES ALT 13 <35 U/L 02/24/2021 17:30 EDT [facility] LABORATORY SERVICES Bilirubin, Total <0.5 <1.4 mg/dL 02/24/2021 17:30 EDT [facility] LABORATORY SERVICES Calcium 9.5 8.5 - 10.5 02/24/2021 17:30 EDT [facility] mg/dL LABORATORY SERVICES Calculated Calcium 9.1 8.5 - 10.5 02/24/2021 17:30 EDT [facility] mg/dL LABORATORY SERVICES Specimen Anatomical Collection Method / Collection Time Recei andre Time (Source) Location / Volume Laterality Blood VENOUS BLOOD / Venipuncture / 02/24/2021 16:55 021 Unknown Unknown EDT 16:58 EDT Frankie Roberto MD CHEMISTRY & BLOOD GAS ORDER LUIS ENRIQUE Performing Organization Address City/State/ZIP Code Phon e Number [facility] [address] [place] [address] SERVICES (ABNORMAL) COMPLETE BLOOD COUNT AND DIFFERENTIAL (02/24/2021 16:55 EDT) [facility] gist Method Time Signature WBC 8.16 4.00 - 02/24/2021 [facility] 12.40 17:25 EDT CENTER K/cmm LABORATORY SERVICES RBC 4.56 3.86 - 02/24/2021 [facility] 5.04 17:25 EDT CENTER M/cmm LABORATORY SERVICES Hemoglobin 11.9 11.6 - 02/24/2021 [facility] 15.2 17:25 EDT CENTER gm/dL LABORATORY SERVICES HCT 37.8 34.9 - 02/24/2021 [facility] 44.4 % 17:25 EDT CENTER LABORATORY SERVICES MCV 83 81 - 98 02/24/2021 [facility] fl 17:25 EDT CENTER LABORATORY SERVICES MCH 26.1 (L) 26.7 - 02/24/2021 [facility] 33.3 pg 17:25 EDT CENTER LABORATORY SERVICES MCHC 31.5 (L) 32.1 - 02/24/2021 [facility] 35.9 17:25 EDT CENTER gm/dL LABORATORY SERVICES RDW-CV 13.4 <14.7 % 02/24/2021 [facility] 17:25 EDT CENTER LABORATORY SERVICES RDW-SD 40.5 <50.4 fl 02/24/2021 [facility] 17:25 EDT CENTER LABORATORY SERVICES PLT 276 141 - 377 02/24/2021 [facility] K/cmm 17:25 EDT CENTER LABORATORY SERVICES MPV 10.9 9.5 - 02/24/2021 [facility] 12.7 fl 17:25 EDT CENTER LABORATORY SERVICES Neutrophils 78.7 % 02/24/2021 [facility] 17:25 EDT CENTER LABORATORY SERVICES Lymphocytes 12.3 % 02/24/2021 [facility] 17:25 EDT CENTER LABORATORY SERVICES Monocytes 7.4 % 02/24/2021 [facility] 17:25 EDT CENTER LABORATORY SERVICES Eosinophils 0.7 % 02/24/2021 [facility] 17:25 EDT CENTER LABORATORY SERVICES Basophils 0.5 % 02/24/2021 [facility] 17:25 EDT CENTER LABORATORY SERVICES Immature Grans 0.4 % 02/24/2021 [facility] 17:25 EDT CENTER LABORATORY SERVICES Absolute 6.43 2.20 - 02/24/2021 [facility] Neutrophils 8.85 17:25 EDT CENTER K/cmm LABORATORY SERVICES Absolute 1.00 (L) 1.09 - 02/24/2021 [facility] Lymphocytes 3.30 17:25 EDT CENTER K/cmm LABORATORY SERVICES Absolute 0.60 0.10 - 02/24/2021 [facility] Monocytes 0.80 17:25 EDT CENTER K/cmm LABORATORY SERVICES Absolute 0.06 0.03 - 02/24/2021 [facility] Eosinophils 0.61 17:25 EDT CENTER K/cmm LABORATORY SERVICES Absolute 0.04 0.01 - 02/24/2021 [facility] Basophils 0.11 17:25 EDT CENTER K/cmm LABORATORY SERVICES Absolute 0.03 0.00 - 02/24/2021 [facility] Immature Grans 0.06 17:25 EDT CENTER K/cmm LABORATORY SERVICES Type of Auto 02/24/2021 [facility] Differential: 17:25 EDT CENTER LABORATORY SERVICES Specimen Anatomical Collection Method / Collection Time Recei andre Time (Source) Location / Volume Laterality Blood VENOUS BLOOD / Venipuncture / 02/24/2021 16:55 021 Unknown Unknown EDT 16:58 EDT Frankie Juan Carlos Felisa MD PACKAGES & DNA PROBE ORDERA BLES Performing Organization Address City/State/ZIP Code Phon e Number [facility] [address] [place] [address] SERVICES HOLD SST (02/24/2021 16:55 EDT) athologist Signature Hold Hold 02/24/2021 [facility] 18:01 EDT CENTER LABORATORY SERVICES Specimen Anatomical Collection Method / Collection Time Recei andre Time (Source) Location / Volume Laterality Blood VENOUS BLOOD / Venipuncture / 02/24/2021 16:55 021 Unknown Unknown EDT 16:58 EDT Nkechi Holley MD LAB INFO SERVICE AND SUPPORT & PHONE RESULT Performing Organization Address City/State/ZIP Code Phon e Number [facility] [address] [place] [address] SERVICES HOLD LAVENDER TOP (02/24/2021 16:55 EDT) athologist Signature Hold Hold 02/24/2021 [facility] 18:01 EDT CENTER LABORATORY SERVICES Specimen Anatomical Collection Method / Collection Time Recei andre Time (Source) Location / Volume Laterality Blood VENOUS BLOOD / Venipuncture / 02/24/2021 16:55 021 Unknown Unknown EDT 16:58 EDT Nkechi Holley MD LAB INFO SERVICE AND SUPPORT & PHONE RESULT Performing Organization Address City/State/ZIP Code Phon e Number [facility] [address] [place] [address] SERVICES HOLD GREEN TOP (02/24/2021 16:55 EDT) athologist Signature Hold Hold 02/24/2021 [facility] 18:01 EDT CENTER LABORATORY SERVICES Specimen Anatomical Collection Method / Collection Time Recei andre Time (Source) Location / Volume Laterality Blood VENOUS BLOOD / Venipuncture / 02/24/2021 16:55 021 Unknown Unknown EDT 16:58 EDT Nkechi Holley MD LAB INFO SERVICE AND SUPPORT & PHONE RESULT Performing Organization Address City/State/ZIP Code Phon e Number [facility] [address] [place] [address] SERVICES documented in this encounter Visit Diagnoses Diagnosis Non-intractable vomiting with nausea, un specified vomiting type - Primary documented in this encounter Administered Medications Inactive Administered Medications - up to 3 most recent administrations Medication Order MAR Action Action Date Dose Rate Site lactated ringers BOLUS 1,000 mL New Bag 02/24/2021 17:28 EDT 1,000 mL 1,000 mL, intravenous, NOW X1, 1 dose, On Anahi 02/24/21 at 1730, STAT ondansetron 4 mg ODT tab STARTER PACK Given 02/24/2021 19:19 EDT 1 Package 1 Package, oral, NOW X1, 1 dose, On Anahi 02/24/21 at 1915, STAT documented in this encounter Active and Recently Administered Medications Times are shown in EDT. Scheduled Medication Order 02/22/2021 02/23/2021 02/24/2021 lactated ringers BOLUS 1,000 mL (COMPLETED) 1728 (New Bag - Provider: Jenny Boyle, ULYSSES)1914 (Completed - Provider: Leydi Pedersen, ULYSSES) 1,000 mL, intravenous, NOW X1, 1 dose, On Anahi 02/24/21 at 1730, S TAT ondansetron (PF) (ZOFRAN) injection 4 mg 173 (Not Given - Provider: Jenny Boyle RN - Reason: Order parameters not met - Comment: Pt not nausous) 4 mg, intravenous, NOW X1, 1 dose, On Anahi 02/24/21 at 1730, STAT ondansetron 4 mg ODT tab STARTER PACK (COMPLETED) 191 (Given - Provider: Leydi Pedersen, ULYSSES) 1 Package, oral, NOW X1, 1 dose, On Anahi 02/24/21 at 1915, STAT documented in this encounter Orders Medications Ordered That Might Not Have Count Last Ord ered Date First Ordered Date Been Administered ondansetron (PF) (ZOFRAN) injection 4 mg 1 021 documented in this encounter Care Teams Auto Body Painter Relationship Specialty Start Date End Date Ida Mendoza, CRM ANALYST PCP - General 02/24/21 [address] [place] [phone] documented as of this encounter
--- OUTSIDE RECORDS SUMMARY | 2022-07-07 00:25 | XMS_ITS | Encounter Summary ---
:2000 Author Organization [facility] Address [address] [place] [address] Care Team Providers Name Role Phone Keith Ojeda APRN Primary Care Provider Encounter Details Date Type Department Care Team Description 04/20/2020 Travel Social History Tobacco Use Types Packs/Day Years Used Date Smoking Tobacco: Never Smokeless Tobacco: Never Sex Assigned at Date Recorded Not on file COVID-19 Exposure Response Date Recorded In the last month, have you been in contact with No / Unsure 04/20/2020 11:33 EDT someone who was confirmed or suspected to have Coronavirus / COVID-19? documented as of this encounter Plan of Treatment Not on filedocumented as of this encounter Visit Diagnoses Not on filedocumented in this encounter Care Teams Media Executive Relationship Specialty Start Date End Date Keith Ojeda APRN PCP - General 07/02/19 09/20/20 [address] [place] [phone] documented as of this encounter
--- OUTSIDE RECORDS SUMMARY | 2022-07-07 00:25 | XMS_ITS | Encounter Summary ---
:2000 Author Organization [facility] Address [address] [place] [address] Care Team Providers Name Role Phone KellyIda mooney COURT OPERATIONS CLERK Primary Care Provider Encounter Details Date Type Department Care Team Description 05/16/2021 Results Only Imaging [facility] - Daniel Reyes PA-C [facility] Radiology Resul ts [address] [facility] [address] [place] [phone] (Wo rk) Social History Tobacco Use Types Packs/Day Years Used Date Smoking Tobacco: Never Smokeless Tobacco: Never Sex Assigned at Date Recorded Not on file documented as of this encounter Plan of Treatment Not on filedocumented as of this encounter Procedures Procedure Name Priority Date/Time Associated Diagnosis Comme nts CT ANGIO CHEST PE 05/16/2021 14:28 Result s for this PROTOCOL EDT procedure are i n the results section. documented in this encounter Results CT ANGIO CHEST PE PROTOCOL (05/16/2021 14:28 EDT) Anatomical Region Laterality Modality Chest Computed Tomography Specimen (Source) Anatomical Collection Method Collection Time Re ceived Time Location / / Volume Laterality 05/16/2021 14:25 EDT Narrative 05/16/2021 14:28 EDT ? EXAM: CAT SCAN/CTA CHEST PE PROTOCOL ?EX. D/ (1418) ? CLINICAL INFORMATION: ? midsternal chest pain ? Exam: CTA chest. ? Indication: midsternal chest pain CHEST PAIN/ANEMIC ? Technique: Axial enhanced imaging of the chest was performed. CT 3-D ? shaded surface rendering was obta ined on a separate Vitrea 2 ? workstation. I actively participa mery in the monitoring of the 3-D ? reconstruction process for this e xam. ? Comparison:None. ? Findings: ? Neck base and axilla: No neck bas e or axillary adenopathy is seen. ? Scattered subcentimeter normal-ap pearing bilateral axillary nodes are ? present. The visualized portions of the thyroid gland are normal in ? appearance. ? Mediastinum and hilum: There is a anterior superior mediastinal 3 cm ? masslike slightly triangular stru cture (series 402 image 38). No ? hilar adenopathy is noted. There is a small amount of soft tissue in ? the right infrahilar area measuri ng approximately 2.2 x 0.5 cm ? (series 402 image 54). No pericar dial effusion is seen. The thoracic ? aorta maintains a normal caliber. ? Pulmonary arteries: No clear fill ing defect is seen within the ? opacified portions of the pulmona ry arterial system. ? Lungs: The lungs are clear. ? Pleura: No pleural effusion is se en. No pneumothorax is detected. ? Below the diaphragm: The visualiz ed portions of the liver spleen ? pancreas and adrenal glands are u nremarkable. ? Osseous: The thoracic vertebral b odies maintain normal height. No ? suspicious thoracic spine, sternu m or rib bone lesions are seen. ? IMPRESSION: ? 1. No pulmonary embolus detected. ? 2. The lungs are grossly clear. ? 3. Anterior superior mediastinal 3 cm masslike fullness. This tissue ? has a somewhat triangular shape a nd may reflect residual thymic ? tissue. Thymoma is less likely. P lease correlate clinically. ? REPORT SIGNED IN OTHER VENDOR SYSTEM 05/16/2021 ?Reported B y: Romaine Friedman MD ? CC: ? Transcribed Date/Time: 05/16/2021 (1428) ? Unit Control Clerk: HIS.[email or web address] ? Printed Date/Time: 05/16/2021 (14 28) ? PAGE 1 ? Trina d Report ? Procedure Note Romaine Friedman MD - 05/16/2021F ormatting of this note might be different from the original. EXAM: CAT SCAN/CTA CHEST PE PROTOCOL EX . D/ (1418) CLINICAL INFORMATION: midsternal chest pain Exam: CTA chest. Indication: midsternal chest pain CHEST PAIN/ANEMIC Technique: Axial enhanced imaging of th e chest was performed. CT 3-D shaded surface rendering was obtained o n a separate Thoundsa 2 workstation. I actively participated in the monitoring of the 3-D reconstruction process for this exam. Comparison:None. Findings: Neck base and axilla: No neck base or a xillary adenopathy is seen. Scattered subcentimeter normal-appearin g bilateral axillary nodes are present. The visualized portions of the thyroid gland are normal in appearance. Mediastinum and hilum: There is a anter ior superior mediastinal 3 cm masslike slightly triangular structure (series 402 image 38). No hilar adenopathy is noted. There is a s mall amount of soft tissue in the right infrahilar area measuring teddy roximately 2.2 x 0.5 cm (series 402 image 54). No pericardial e ffusion is seen. The thoracic aorta maintains a normal caliber. Pulmonary arteries: No clear filling de fect is seen within the opacified portions of the pulmonary art erial system. Lungs: The lungs are clear. Pleura: No pleural effusion is seen. No pneumothorax is detected. Below the diaphragm: The visualized por tions of the liver spleen pancreas and adrenal glands are unremar kable. Osseous: The thoracic vertebral bodies maintain normal height. No suspicious thoracic spine, sternum or r ib bone lesions are seen. IMPRESSION: 1. No pulmonary embolus detected. 2. The lungs are grossly clear. 3. Anterior superior mediastinal 3 cm m asslike fullness. This tissue has a somewhat triangular shape and may reflect residual thymic tissue. Thymoma is less likely. Please correlate clinically. REPORT SIGNED IN OTHER VENDOR SYSTEM 05/16/2021 Reported By: Romaine Friedman MD CC: Transcribed Date/Time: 05/16/2021 (4769 ) Unit Control Clerk: Printed Date/Time: 05/16/2021 (7028) PAGE 1 Signed Report Daniel Ryees PA-C IMG CT ORDERABLES documented in this encounter Visit Diagnoses Not on filedocumented in this encounter Care Teams Intranet Specialist Relationship Specialty Start Date End Date Ida Mendoza, ALANNAH PCP - General 02/24/21 [address] [place] [phone] documented as of this encounter
--- OUTSIDE RECORDS SUMMARY | 2022-07-07 00:25 | XMS_ITS | Encounter Summary ---
:2000 Author Organization [facility] Address [address] [place] [address] Care Team Providers Name Role Phone Unknown, Provider Primary Care Provider Encounter Details Date Type Department Care Team Description 01/04/2018 Historical Results [facility] - Rubina Mazariegos, Only [facility] Radiology DPM Results [address] [place] [address] [address] [place], [place] [phone] (Wo rk) Social History Tobacco Use Types Packs/Day Years Used Date Smoking Tobacco: Never Assessed Sex Assigned at Date Recorded Not on file documented as of this encounter Plan of Treatment Not on filedocumented as of this encounter Procedures Procedure Name Priority Date/Time Associated Comments Diagnosis XR TOE LEFT 2 OR 01/04/2018 14:08 Results for this MORE VIEWS EDT procedure are i n the results section. TEST CANCELLED - Routine 01/04/2018 14:00 Results for this [facility] EDT procedure are i n the results section. C REACTIVE PROTEIN Routine 01/04/2018 14:00 Resul ts for this EDT procedure are i n the results section. CREATININE Routine 01/04/2018 14:00 Results for this EDT procedure are i n the results section. ROUTINE CULTURE - Routine 01/04/2018 13:00 Result s for this [facility] EDT procedure are i n the results section. documented in this encounter Results XR TOE LEFT 2 OR MORE VIEWS (01/04/2018 14:08 EDT) Anatomical Region Laterality Modality Lower Extremities Left Other Specimen (Source) Anatomical Collection Method Collection Time Re ceived Time Location / / Volume Laterality 01/04/2018 14:08 EDT Narrative 01/04/2018 14:12 EDT ? EXAM: RADIOLOGY/TOE(S) LEFT ? EX. D/ (1322) ? CLINICAL INFORMATION: ? PARONYCHIA OF TOE OF LEFT FOOT L0 3.032 ? TOE(S) LEFT ? Signs and Symptoms/Comments: ??PA RONYCHIA OF TOE OF LEFT FOOT L03.032 ? Comparison: None ? FINDINGS: ? Left great toe: 3 views were perf ormed. Focal soft tissue swelling is ? present along the lateral aspect of the distal great toe, compatible ? with the provided history of paro nychia/soft tissue infection. Subtle ? erosive changes are suspected cristian ng the underlying lateral aspect of ? the tuft of the 1st distal phalan x. Although nonspecific, ? superimposed osteomyelitis cannot be entirely excluded. ? No significant degenerative coy es are present in the 1st IP or MCP ? joints. No fracture is identified . No radiopaque foreign body is ? visible. ? IMPRESSION: ? Focal soft tissue swelling along the lateral aspect of the distal ? great toe. Subtle erosive changes in the underlying 1st distal ? phalanx tuft could reflect superi mposed osteomyelitis. MR may be ? performed for further evaluation. ? REPORT SIGNED IN OTHER VENDOR SYSTEM 01/04/2018 ?Reported B y: Greg Ly MD ? CC: ? Transcribed Date/Time: 01/04/2018 (1412) ? Ward Nurse: ? Printed Date/Time: 01/24/2019 (12 33) ? PAGE 1 ? Trina d Report ? Procedure Note Greg Ly MD - 06/12/2019Format ting of this note might be different from the original. EXAM: RADIOLOGY/TOE(S) LEFT EX. D/T: (1322) CLINICAL INFORMATION: PARONYCHIA OF TOE OF LEFT FOOT L03.032 TOE(S) LEFT Signs and Symptoms/Comments: PARONYCHIA OF TOE OF LEFT FOOT L03.032 Comparison: None FINDINGS: Left great toe: 3 views were performed. Focal soft tissue swelling is present along the lateral aspect of the distal great toe, compatible with the provided history of paronychia /soft tissue infection. Subtle erosive changes are suspected along the underlying lateral aspect of the tuft of the 1st distal phalanx. Alt garcía nonspecific, superimposed osteomyelitis cannot be en tirely excluded. No significant degenerative changes are present in the 1st IP or MCP joints. No fracture is identified. No r adiopaque foreign body is visible. IMPRESSION: Focal soft tissue swelling along the la teral aspect of the distal great toe. Subtle erosive changes in th e underlying 1st distal phalanx tuft could reflect superimposed osteomyelitis. MR may be performed for further evaluation. REPORT SIGNED IN OTHER VENDOR SYSTEM 01/04/2018 Reported By: Greg Ly MD CC: Transcribed Date/Time: 01/04/2018 (1412 ) Ward Nurse: Printed Date/Time: 01/24/2019 (9213) PAGE 1 Signed Report Nkechi Mazariegos DPM IMG DIAGNOSTIC IMAGING ORDER LUIS ENRIQUE (ABNORMAL) C REACTIVE PROTEIN (01/04/2018 14:00 EDT) athologist Signature C-Reactive 17.2 (H) <10.0 mg/L 01/04/2018 [facility] Protein 18:36 EDT [facility] Specimen Anatomical Collection Method Collection Time Receive d Time (Source) Location / / Volume Laterality 01/04/2018 14:00 01/04/2018 EDT 17:41 EDT Nkechi M Delilah DPM CHEMISTRY & BLOOD GAS ORDERA BLES Performing Organization Address City/[facility]/ZIP Code Phon e Number [facility] [address] [facility], [facility] [place] [address] LAB CREATININE (01/04/2018 14:00 EDT) athologist Signature CREATININE 0.60 0.52 - 1.04 01/04/2018 [facility] mg/dL 18:[address] [facility] eGFR >60 01/04/2018 [facility] 18:[address] [facility] Comment: Chronic renal impairment is defined as G FR <60 Multiply result by 1.210 for Valorie rican patients. eGFR calculated using the IDMS-traceable MDRD Study Equation. ??(effective 06/08/2014) Specimen Anatomical Collection Method Collection Time Receive d Time (Source) Location / / Volume Laterality 01/04/2018 14:00 01/04/2018 EDT 17:41 EDT Nkechi M Delilah DPM CHEMISTRY & BLOOD GAS ORDERA BLES Performing Organization Address [facility]/ZIP Code Phon e Number [facility] [address] LAB TEST CANCELLED - [facility] (01/04/2018 14:00 EDT) athologist Signature TEST CANCELLED SEE NOTE 01/07/2018 [facility] 9:09 EDT [facility] Comment: The following test(s) have been cancelle d: TEST: ??CBC REASON FOR CANCELLATION: ??CLOTTED OFFICE/MD NOTIFIED ??Abebe Ellis office Specimen Anatomical Collection Method Collection Time Receive d Time (Source) Location / / Volume Laterality 01/04/2018 14:00 01/04/2018 EDT 17:41 EDT Nkechi M Delilah DPM CHEMISTRY & BLOOD GAS ORDERA BLES Performing Organization Address City/[facility]/ZIP Code Phon e Number [facility] [address] [place] [address] [facility] ROUTINE CULTURE - [facility] (01/04/2018 13:00 EDT) Component Value Ref Test Analysis Performed Pathologis t Range Method Time At Signature Culture [facility] product was NOT detected in this coagulase 01/06/2018 [facility] positive Staph isolate. It is SUSCEPTIBLE to oxacillin, 7:26 EDT [facility] cephalosporins and other beta lactam antibiotics. CENTER LAB STAPHYLOCOCCUS SP STAPHYLOCOCCUS SP 01/06/2018 CECIL TRAL COAG POSITIVE - COAG POS 7:26 EDT [facility] LAB QUANT - CV MODERATE 01/06/2018 [facility] 7:26 EDT [facility] USUAL SKIN RAJAT USF 01/06/2018 [facility] - CV 7:26 EDT [facility] QUANT - CV FEW 01/06/2018 [facility] 7:26 EDT [facility] Specimen Anatomical Collection Method Collection Time Receive d Time (Source) Location / / Volume Laterality 01/04/2018 13:00 01/04/2018 EDT 17:49 EDT Comment: TU Organism Antibiotic Method Susceptibility Staphylococcus sp coag Azithromycin GRAM POSITIVE Susceptib le pos SUSCEPTIBILITY - CV Staphylococcus sp coag Clindamycin GRAM POSITIVE <=0.25: S usceptible pos SUSCEPTIBILITY - CV Staphylococcus sp coag Cefpodoxime GRAM POSITIVE Susceptib le pos SUSCEPTIBILITY - CV Staphylococcus sp coag Cefazolin GRAM POSITIVE Susceptib le pos SUSCEPTIBILITY - CV Staphylococcus sp coag Erythromycin GRAM POSITIVE <=0.25: S usceptible pos SUSCEPTIBILITY - CV Staphylococcus sp coag Levofloxacin GRAM POSITIVE 0.25: Yusra ceptible pos SUSCEPTIBILITY - CV Staphylococcus sp coag Oxacillin GRAM POSITIVE <=0.25: S usceptible pos SUSCEPTIBILITY - [facility] Staphylococcus sp coag Penicillin GRAM POSITIVE 0.06: Res istant pos SUSCEPTIBILITY - [facility] Staphylococcus sp coag Trimethoprim-Sulfame GRAM POSITIVE <=10 : Susceptible pos thoxazole SUSCEPTIBILITY - [facility] Staphylococcus sp coag Tetracycline GRAM POSITIVE <=1: Susc eptible pos SUSCEPTIBILITY - [facility] Staphylococcus sp coag Vancomycin GRAM POSITIVE <=0.5: Abel sceptible pos SUSCEPTIBILITY - [facility] Comment: See Reason(s) for Study Nkechi Mazariegos DPM CHEMISTRY & BLOOD GAS ORDERA BLES Performing Organization Address City/State/ZIP Code Phon e Number [facility] [address] LAB documented in this encounter Visit Diagnoses Not on filedocumented in this encounter Care Teams Director Of Purchasing Relationship Specialty Start Date End Date Unknown, Provider, PCP - General 01/04/18 07/01/19 documented as of this encounter
--- OUTSIDE RECORDS SUMMARY | 2022-07-07 00:25 | XMS_ITS | Encounter Summary ---
:[address] [facility] Address [address] [place] [address] Care Team Providers Name Role Phone Ida Mendoza CARBIDE TOOL DIE MAKER Primary Care Provider Encounter Details Date Type Department Care Team Description 02/24/2021 Travel Social History Tobacco Use Types Packs/Day [...] on filedocumented in this encounter Care Teams Press Operator Helper Relationship Specialty Start Date End Date Ida Mendoza, CARBIDE TOOL DIE MAKER PCP - General 02/24/[address] [place] [phone] documented as of this encounter
--- OUTSIDE RECORDS SUMMARY | 2022-07-07 00:25 | XMS_ITS | Encounter Summary ---
:2000 Author Organization [facility] Address [address] [place] [address] Care Team Providers Name Role Phone Unknown, Provider Primary Care Provider Encounter Details Date Type Department Care Team Description 01/04/2018 Hospital Encounter [facility] - Unknown, Christopher hanna [facility] [phone] [address] [facility] (Work) [place] [address] Social History Tobacco Use Types Packs/Day Years Used Date Smoking Tobacco: Never Assessed Sex Assigned at Date Recorded Not on file documented as of this encounter Discharge Disposition Disposition Code Departure Means Destination Home or Self [facility] documented in this encounter Plan of Treatment Not on filedocumented as of this encounter Visit Diagnoses Not on filedocumented in this encounter Care Teams Open Shank Coverer Relationship Specialty Start Date End Date Unknown, Provider, PCP - General 01/04/18 07/01/19 documented as of this encounter
--- OUTSIDE RECORDS SUMMARY | 2022-07-07 00:25 | XMS_ITS | Encounter Summary ---
:2000 Author Organization [facility] Address [address] [place] [address] Care Team Providers Name Role Phone Unknown, Provider Primary Care Provider Encounter Details Date Type Department Care Team Description 02/27/2018 Historical Results [facility] - Rubina Mazariegos, Only [facility] Rad[place] DPM Results [address] [place] [address] [address] [place] [address] (Wo rk) Social History Tobacco Use Types Packs/Day Years Used Date Smoking Tobacco: Never Assessed Sex Assigned at Date Recorded Not on file documented as of this encounter Plan of Treatment Not on filedocumented as of this encounter Procedures Procedure Name Priority Date/Time Associated Diagnosis Comme nts XR TOE LEFT 2 OR 02/27/2018 12:24 Results for this MORE VIEWS EDT procedure are i n the results section. documented in this encounter Results XR TOE LEFT 2 OR MORE VIEWS (02/27/2018 12:24 EDT) Anatomical Region Laterality Modality Lower Extremities Left Other Specimen (Source) Anatomical Collection Method Collection Time Re ceived Time Location / / Volume Laterality 02/27/2018 12:24 EDT Narrative 02/27/2018 12:27 EDT ? EXAM: RADIOLOGY/TOE(S) LEFT ? EX. D/ (1102) ? CLINICAL INFORMATION: ? ACUTE OSTEOMYELITIS OF PHALANX OF LEFT FOOT M86.172 ? TOE(S) LEFT ? Signs and Symptoms/Comments: ??AC LUZ OSTEOMYELITIS OF PHALANX OF LEFT ? FOOT M86.172 ? Comparison: 01/04/2018. MR left tatyana t on 01/11/2018 ? FINDINGS: ? Left 1st toe: 3 views were perfor med. Subtle erosive changes along ? the lateral aspect of the tuft of the 1st distal phalanx to ? correspond to findings suspicious for osteomyelitis on prior MR. ? There has been no definite radiog raphic progression compared to ? 01/04/2018. No acute fracture or ma lalignment is identified. No ? significant degenerative changes are present. The soft tissues about ? the great toe remain swollen. ? IMPRESSION: ? Persistent subtle erosive changes along the 1st distal phalanx tuft, ? corresponding to findings suspici ous for osteomyelitis on prior MR. ? No radiographic change compared t o 01/04/2018. ? REPORT SIGNED IN OTHER VENDOR SYSTEM 02/27/2018 ?Reported B y: Greg Ly MD ? CC: ? Transcribed Date/Time: 02/27/2018 (1227) ? Microbiology Professor: ? Printed Date/Time: 01/24/2019 (12 33) ? PAGE 1 ? Trina d Report ? Procedure Note Greg Ly MD - 06/12/2019Format ting of this note might be different from the original. EXAM: RADIOLOGY/TOE(S) LEFT EX. D/T: (1102) CLINICAL INFORMATION: ACUTE OSTEOMYELITIS OF PHALANX OF LEFT FOOT M86.172 TOE(S) LEFT Signs and Symptoms/Comments: ACUTE OSTE OMYELITIS OF PHALANX OF LEFT FOOT M86.172 Comparison: 01/04/2018. MR left foot on FINDINGS: Left 1st toe: 3 views were performed. S ubtle erosive changes along the lateral aspect of the tuft of the 1 st distal phalanx to correspond to findings suspicious for o steomyelitis on prior MR. There has been no definite radiographic progression compared to 01/04/2018. No acute fracture or malalign ment is identified. No significant degenerative changes are pr esent. The soft tissues about the great toe remain swollen. IMPRESSION: Persistent subtle erosive changes along the 1st distal phalanx tuft, corresponding to findings suspicious fo r osteomyelitis on prior MR. No radiographic change compared to 2017. REPORT SIGNED IN OTHER VENDOR SYSTEM 02/27/2018 Reported By: Greg Ly MD CC: Transcribed Date/Time: 02/27/2018 (6313 ) Microbiology Professor: Printed Date/Time: 01/24/2019 (9377) PAGE 1 Signed Report Nkechi Mazariegos DPM IMG DIAGNOSTIC IMAGING ORDER LUIS ENRIQUE documented in this encounter Visit Diagnoses Not on filedocumented in this encounter Care Teams Chain Forming Machine Operator Relationship Specialty Start Date End Date Unknown, Provider, PCP - General 01/04/18 07/01/19 documented as of this encounter
--- OUTSIDE RECORDS SUMMARY | 2022-07-07 00:25 | XMS_ITS | Encounter Summary ---
:2000 Author Organization [facility] Address [address] [place] [address] Care Team Providers Name Role Phone Unknown, Provider Primary Care Provider Encounter Details Date Type Department Care Team Description 01/25/2018 Historical Results [facility] - Rubina Mazariegos, Only [facility] [place] Lab - Main [address] [address] [address] [place], [place] [id number] (Wo rk) Social History Tobacco Use Types Packs/Day Years Used Date Smoking Tobacco: Never Assessed Sex Assigned at Date Recorded Not on file documented as of this encounter Plan of Treatment Not on filedocumented as of this encounter Procedures Procedure Name Priority Date/Time Associated Diagnosis Comme nts ANAEROBIC CULTURE - Routine 01/25/2018 8:49 EDT R esults for this [facility] procedure are i n the results section. SURGICAL PATHOLOGY Routine 01/25/2018 Results f or this procedure are i n the results section. documented in this encounter Results ANAEROBIC CULTURE - [facility] [place] (01/25/2018 8:49 EDT) Component Value Ref Test Analysis Performed Pathologis t Range Method Time At Signature PEPTOSTREPTOCOCCUS PEPTOSTREPTOCOCCUS CE NTRAL SPECIES - [facility] [place] SPECIES 8 11:35 [facility] QUANT - [facility] [place] RARE CENTRAL 8 11:35 [facility] Anaerobe Culture TISSUE SUBMITTED CENTRA L 8 9:53 [facility] BACTERIA SEEN - [facility] [place] NO CENTRAL 8 9:53 [facility] WBC RARE CENTRAL 8 9:53 [facility] GRAM STAIN - [facility] [place] The mecA gene product was NOT detected in this coagulase 8 6:27 [place] positive Staph isolate. It is SUSCEPTIBLE to oxacillin, EDT [facility] cephalosporins and other beta lactam antibiotics. LAB USUAL SKIN RAJAT - [facility] 8 6:27 [facility] QUANT - [facility] [place] RARE [place] 8 6:27 [facility] Specimen Anatomical Collection Method Collection Time Receive d Time (Source) Location / / Volume Laterality 01/25/2018 8:49 01/25/2018 9 :16 EDT EDT Comment: LF Narrative [facility] - 018 11:35 EDT COMMENTS: LEFT HALLUX BONE, AEROBIC/ANAEROBIC AND GRAM STAIN Does PT Have a Latex Allergy? NO Organism Antibiotic Method Susceptibility Peptostreptococcus Azithromycin GRAM POSITIVE Susceptible species SUSCEPTIBILITY - [facility] [place] Peptostreptococcus Clindamycin GRAM POSITIVE <=0.25: Susce ptible species SUSCEPTIBILITY - [facility] [place] Peptostreptococcus Cefpodoxime GRAM POSITIVE Susceptible species SUSCEPTIBILITY - [facility] [place] Peptostreptococcus Cefazolin GRAM POSITIVE Susceptible species SUSCEPTIBILITY - [facility] [place] Peptostreptococcus Erythromycin GRAM POSITIVE <=0.25: Susce ptible species SUSCEPTIBILITY - [facility] [place] Peptostreptococcus Levofloxacin GRAM POSITIVE 0.25: Suscept ible species SUSCEPTIBILITY - [facility] [place] Peptostreptococcus Oxacillin GRAM POSITIVE <=0.25: Susce ptible species SUSCEPTIBILITY - [facility] [place] Peptostreptococcus Penicillin GRAM POSITIVE 0.25: Resista nt species SUSCEPTIBILITY - [facility] [place] Peptostreptococcus Trimethoprim-Sulfam GRAM POSITIVE <=10: Yusra ceptible species ethoxazole SUSCEPTIBILITY - [facility] [place] Peptostreptococcus Tetracycline GRAM POSITIVE <=1: Suscepti ble species SUSCEPTIBILITY - [facility] [place] Peptostreptococcus Vancomycin GRAM POSITIVE <=0.5: Suscep tible species SUSCEPTIBILITY - [facility] [place] Comment: See Reason(s) for Study Nkechi Mazariegos DPM MICROBIOLOGY - GENERAL ORDER LUIS ENRIQUE Performing Organization Address City/State/ZIP Code Phon e Number [facility] [address] [place], [place] [id number] [place] [address] LAB SURGICAL PATHOLOGY (01/25/2018) Specimen (Source) Anatomical Collection Method Collection Time Re ceived Time Location / / Volume Laterality 01/25/2018 01/25/2018 9:16 EDT Narrative [facility] - 018 14:46 EDT Name: SILVIA TAN ?: [birth year] ?Age/Sex: 18/F ?Unit#: [id number] ? Loc: SDS ? Status: DEP SDC ?? Reg Date: 01/25/18 ? Pt.Phone Number : ? Specimen: [id number] ? KAYLEIGH DEL CID: SOUT ?Spec Date:01/25/18 ? Physician Copies: ?Nkechi Mazariegos DP Tissues: A ?? Bone biopsy (LEFT HALLUX # 1) ? Lucas,Argentina APR ? B ?? Bone biopsy (LEFT PIERRE UX #2) ? CPT: 99614 ?? Units: ??2 ? 87370 ? 2 ?FINAL DIAGNOSIS ? A. HALLUX, LEFT, #1, BONE BIOPSY; ? - Viable bone with reactive coy es; no osteomyelitis identified. ? - Periosteal soft tissue fibrosis with mild chronic inflammatory infiltrate. ? B. HALLUX, LEFT, #2, BONE BIOPSY; ? - Viable bone with sclerotic and remodeling changes; no osteomyelitis ? identified. ? - Periosteal soft tissue fibrosis with mild chronic inflammatory infiltrate. ? GROSS DESCRIPTION ? A. ??Received in formalin labeled with the patient's name and left hallux bone ? are two firm kaba tissue fragments , each measuring 0.2 x 0.2 x 0.2 cm, submitted ? intact after gentle decalcificati on. ??e.s. 1 ? B. ??Received in formalin labeled with the patient's name and left hallux bone ? is a single kaba tissue fragment m easuring 0.3 x 0.2 x 0.2 cm, submitted intact ? after gentle decalcification. ??e .s. 1 SS ?? PREOP DX/CLINICAL HISTORY ?Osteomyelitis left hallux Signed ____(signature on file)____ Jaclyn Chaudhry M.D. 01/28/18 By the signature above, the attending ph ysician certifies that he/she has personally conducted a gross and/or microscopic exa mination of the described specimens and rendered or confirmed the above diagnosi s. Test Performed by [facility], [address] [place] [address] Auto Painter: Jaclyn Garza MD PHD Nkechi Mazariegos DPM PATHOLOGY ORDERABLES Performing Organization Address City/State/ZIP Code Phon e Number [facility] [address] [place] [address] LAB documented in this encounter Visit Diagnoses Not on filedocumented in this encounter Care Teams Mri Assistant Relationship Specialty Start Date End Date Unknown, Provider, PCP - General 01/04/18 07/01/19 documented as of this encounter
--- OUTSIDE RECORDS SUMMARY | 2022-07-07 00:25 | XMS_ITS | Encounter Summary ---
:2000 Author Organization [facility] Address [address] [place] [address] Care Team Providers Name Role Phone Luz Doss Primary Care Provider Encounter Details Date Type Department Care Team Description 01/12/2021 Travel Social History Tobacco Use Types Packs/Day Years Used Date Smoking Tobacco: Never Smokeless Tobacco: Never Sex Assigned at Date Recorded Not on file COVID-19 Exposure Response Date Recorded In the last month, have you been in contact with No / Unsure 01/12/2021 16:25 EDT someone who was confirmed or suspected to have Coronavirus / COVID-19? documented as of this encounter Plan of Treatment Not on filedocumented as of this encounter Visit Diagnoses Not on filedocumented in this encounter Care Teams Manager Management Relationship Specialty Start Date End Date Luz Doss ARNP PCP - General 12/09/20 02/23/[address] [place] [id number] documented as of this encounter
--- OUTSIDE RECORDS SUMMARY | 2022-07-07 00:25 | XMS_ITS | Encounter Summary ---
:2000 Author Organization [facility] Address [address] [place] [address] Care Team Providers Name Role Phone Luz Doss Primary Care Provider Reason for Visit Reason Comments Follow-up Follow-up Encounter Details Date Type Department Care Team Description 01/12/[address] [facility] - Nkechi Mazariegos I ngrown nail [facility] Orthopedics & DPM (Primary Dx) Podiatry [address], [facility] [address] [place] [address] [place], [place] [id number] (Wo rk) Social History Tobacco Use Types [...] Sign Reading Time Taken Comments Blood Pressure - - Pulse 78 01/12/2021 1624 EDT Temperature 36.6 ??C (97.8 ??F) 01/12/2021 1624 EDT Respiratory Rate - - Oxygen Saturation 98% 01/12/2021 1624 EDT Inhaled Oxygen Concentration - - Weight - - Height - - Body Mass Index - - documented in this encounter Progress Notes Nkechi Mazariegos DPM - 01/12/2021 1630 EDTAssociated Order(s): Medication Only Injection Post-Procedure Diagnose(s): Ingrown nail CHIEF COMPLAINT: Chief Complaint Patient presents with ??? Right Foot - Follow-up ??? Left Foot - Follow-up SUBJECTIVE: Silvia Tan is a 20 y.o. female who presents today for follow up *right great toe ingrown nail. She underwent slant back procedure at last visit, no improvements, continued ingrowth and pain. Denies any active redness, warmth or infection. Medial border has caused her pains/ingrowth in past. I have reviewed the medication list. Pertinent changes noted. ROS: Constitutional: negative for, fever, chills, fatigue, malaise HEENT: Negative for decrease or disturbance of taste and/or smell. Cardiovascular: Negative for chest pain, dyspnea, palpitations. Respiratory: Negative for cough, wheezing, Gastrointestinal: Negative for abdominal pain, nausea, diarrhea Musculoskeletal:positive for foot pain OBJECTIVE: Pulse 78 Temp 36.6 ??C (97.8 ??F) SpO2 98% Gen: A+Ox3, NAD Lower extremity examination Palpable pedal pulses. Normal protective sensation medial border right hallux with ingrowth/localized edema to bilateral border right hallux, lateral border more inflammed currently. Localized pain to palpationn. No purulence, fluctuance. ASSESSMENT/PLAN: Ingrown nail. The procedure and alternative treatments were discussed with the patient. Due to the chronic nature of the incurvated nail edge, recommended a matrixectomy. The risks of the procedure, which can include but are not limited to infection, slow healing, recurrent ingrowing of the nail, need for additional procedures, etc. are understood by the patient. Verbal and written informed consent has been given Medication Only Injection on 01/12/2021 16:30 Medications: 4 mL bupivacaine (PF) 0.5% Patient identity and site verification were confirmed by me. Patient was placed in a supine or semisupine position. Skin prep with alcohol. Digital block performed of the [Right great toe with 4ccof a 0.5% Marcaine plain. Betadine prep of the toe was then performed. Once anesthesia was adequate, tourniquet was applied to base of toe. Nail plate was split longitudinally back to the proximal nail under the proximal nail fold utilizing an Macedonian anvil. The offendingingrown portion of the nail was removed in total on both medial and lateral border. The excised nailplate was approximately 5-6 mm in width on lateral border, 3mm on medial border. This nail fold was curetted, and it was found that there were no spicules remaining. Phenol was then applied to the appropriate portion of the nail matrix, 3x30 seconds to both borders. isopropyl alcohol was then utilizedto flush the wound. Dressing was placed of betadine soaked adaptic, gauze and coban. The tourniquet was released. There was an hyperemic response with rapid capillary refill noted. Thhe procedure and local anesthesia were tolerated well. The patient was given printed and oral instructions for postoperative care, which includes twice daily wound care. Each morning, cleanse thoroughly with warm soapy water. Each evening will soak the foot in warm water with Epsom salts for 10 minutes, dry thoroughly, and then dress with a bandage again.Tylenol or Advil should be adequate for any post-procedure pain. Patient should call if there are any problems or questions. Signs and symptoms of infection were explained. This note was prepared using voice recognition software and the EMR. There may be inadvertent errorsand omissions. Nkechi Mazariegos DPM 01/12/2021 documented in this encounter Plan of Treatment Not on filedocumented as of this encounter Procedures Procedure Name Priority Date/Time Associated Comments Diagnosis MEDICATION ONLY Routine 01/12/2021 16:30 Ingrown nail Results for this INJECTION EDT procedure are i n the results section. documented in this encounter Results Medication Only Injection (01/12/2021 16:30 EDT) Narrative [facility] POINT OF CARE - 01/12/2021 16:30 E DT Nkechi Mazariegos DPM ? 01/13/2021 22:26 Medication Only Injection on 01/12/2021 16 :30 Medications: 4 mL bupivacaine (PF) 0.5% Nkechi Mazariegos DPM PROCEDURE/MINOR SURGICAL ORD ERABLES Performing Organization Address City/State/ZIP Code Phon e Number [facility] POINT OF CARE documented in this encounter Visit Diagnoses Diagnosis Ingrown nail - Primary Ingrowing nail documented in this encounter Administered Medications Inactive Administered Medications - up to 3 most recent administrations Medication Order MAR Action Action Date Dose Rate Site bupivacaine (PF) (MARCAINE) 0.5% Given 01/12/2021 16:30 EDT 4 mL injection 4 mL 4 mL, intra-articular, Once PRN Procedure, 1 dose, Starting on Sun01/12/21 at 1630, Until Sun01/12/21 at 1630, Routine documented in this encounter Orders Medications Ordered That Might Not Have Count Last Ord ered Date First Ordered Date Been Administered bupivacaine (PF) (MARCAINE) 0.5% injection 1 01/13 4 mL documented in this encounter Care Teams Machine Setter Automatic Relationship Specialty Start Date End Date Luz Doss ARNP PCP - General 12/09/20 02/23/21 [address] [facility] [address] [place] [address] documented as of this encounter
--- OUTSIDE RECORDS SUMMARY | 2022-07-07 00:25 | XMS_ITS | Encounter Summary ---
:2000 Author Organization [facility] Address [address] [place] [address] Care Team Providers Name Role Phone KellyIda mooney RAIL TRACK MAINTAINER Primary Care Provider Encounter Details Date Type Department Care Team Description 05/16/2021 Results Only [facility] Daniel Reyes PA-C Lab - Main [place] [address] [facility] [address] [place] [address] [place], [place] [address] [phone] Social History Tobacco Use Types Packs/Day Years Used Date Smoking Tobacco: Never Smokeless Tobacco: Never Sex Assigned at Date Recorded Not on file documented as of this encounter Plan of Treatment Not on filedocumented as of this encounter Procedures Procedure Name Priority Date/Time Associated Comments Diagnosis BACTERIAL CULTURE, Routine 05/16/2021 13:42 Resul ts for this URINE EDT procedure are i n the results section. URINE MICROSCOPIC Routine 05/16/2021 13:20 Result s for this EDT procedure are i n the results section. COMPLETE BLOOD COUNT Routine 05/16/2021 12:27 Res ults for this WITH DIFFERENTIAL EDT procedure are in (AUTO) the results section. TROPONIN I Routine 05/16/2021 12:27 Results for this EDT procedure are i n the results section. D-DIMER Routine 05/16/2021 12:27 Results for this EDT procedure are i n the results section. MAGNESIUM Routine 05/16/2021 12:27 Results for this EDT procedure are i n the results section. COMPREHENSIVE Routine 05/16/2021 12:27 Results fo r this METABOLIC PANEL (CMP) EDT proced ure are in the results section. documented in this encounter Results BACTERIAL CULTURE, URINE (05/16/2021 13:42 EDT) Patholo gist Method Time Signature GROUP B SXB 05/17/2021 [facility] STREPTOCOCCUS - 11:04 EDT [facility] COLONY COUNT 10,000-10 CFU/ML 05/17/2021 [facility] 0,000 11:04 [facility] Specimen Anatomical Collection Method Collection Time Receive d Time (Source) Location / / Volume Laterality Urine 05/16/2021 13:42 05/16/2021 EDT 14:11 EDT Comment: VOID Daniel Hare PA-C MICROBIOLOGY - GENERAL ORDER LUIS ENRIQUE Performing Organization Address City/[facility]/ZIP Code Phon e Number [facility] [address] [place] [address] URINE MICROSCOPIC (05/16/2021 13:20 EDT) P athologist Signature URINE Bloody CLEAR 05/16/2021 [facility] APPEARANCE - 14:04 [facility] URINE BACTERIA FEW 05/16/2021 [facility] 14:10 [facility] URINE COLOR - Red YELLOW 05/16/2021 [facility] 14:04 [facility] Comment: Abnormal urine color may interfere with interpretation of the urinalysis reagent test strips. Urinalysis order has been reflexed to Ur ine Microscopic due to color interference. URINE RBC - [facility] TNTC rbc/hpf 05/16/2021 14:10 [facility] URCULTIF+? - [facility] Culture Ordered 05/16/2021 14:10 [facility] URINE SQUAMOUS FEW NEG #/hpf 05/16/2021 14:10 [facility] CELLS - [facility] URINE WBC - [facility] TNTC NEG wbc/hpf 05/16/2021 14:10 [facility] Specimen Anatomical Collection Method Collection Time Receive d Time (Source) Location / / Volume Laterality 05/16/2021 13:20 05/16/2021 EDT 14:00 EDT Daniel Hare PA-C URINALYSIS ORDERABLES Performing Organization Address City/[facility]/ZIP Code Phon e Number [facility] [address] [place] [address] TROPONIN I (05/16/2021 12:27 EDT) [facility] Troponin I <0.034 0.000 - 05/16/2021 [facility] (ng/mL) 0.034 13:04 EDT [facility] ng/mL CENTER LAB Comment: Interpretation comments: ??Cutoff for a positive troponin result is set at the 99th percentile of the upper reference limit. ??Elevated troponin must always be inte rpreted in the context of the clinical presentation. ?Serial troponin testing 3-6 hr from [facility] is favored over relying on a single troponin level. ?? The results of this assay can be fal sely lowered due to the consumption of Biotin. Specimen Anatomical Collection Method Collection Time Receive d Time (Source) Location / / Volume Laterality 05/16/2021 12:27 05/16/2021 EDT 12:30 EDT Daniel AMOS-Dennis CHEMISTRY & BLOOD GAS ORDERA BLES Performing Organization Address City/[facility]/ZIP Code Phon e Number [facility] [address] [place] [address] MAGNESIUM (05/16/2021 12:27 EDT) [facility] Magnesium 1.80 1.7 - 2.8 05/16/2021 [facility] mg/dL 12:53 EDT [facility] Specimen Anatomical Collection Method Collection Time Receive d Time (Source) Location / / Volume Laterality 05/16/2021 12:27 05/16/2021 EDT 12:30 EDT Daniel AMOS-C CHEMISTRY & BLOOD GAS ORDERA BLES Performing Organization Address City/[facility]/ZIP Code Phon e Number [facility] [address] [place] [address] (ABNORMAL) COMPREHENSIVE METABOLIC PANEL (CMP) (05/16/2021 12:27 EDT) [facility] Albumin % 4.3 3.4 - 4.9 05/16/2021 [facility] g/dL 12:53 EDT [facility] ALKALINE 55 38 - 126 05/16/2021 [facility] PHOSPHATASE - U/L 12:53 EDT [facility] BILIRUBIN TOTAL 0.4 0.2 - 1.3 05/16/2021 [facility] mg/dL 12:53 EDT [facility] BUN - [facility] 6 (L) 10 - 26 05/16/2021 [facility] mg/dL 12:53 T [facility] CALCIUM - [facility] 9.3 8.5 - 10.5 05/16/2021 [facility] mg/dL 12:53 [facility] Chloride 105 96 - 110 05/16/2021 [facility] mmol/L 12:53 [facility] CO2 Total 25 22 - 32 05/16/2021 [facility] mEq/L 12:53 [facility] CREATININE 0.60 0.52 - 05/16/2021 [facility] 1.04 mg/dL 12:53 [facility] eGFR >60 05/16/2021 [facility] 12:53 [facility] Comment: Chronic renal impairment is defined as G FR <60 Multiply result by 1.210 for Val[place] r[place] patients. eGFR calculated using the IDMS-traceable MDRD Study Equation. ??(effective 06/08/2014) Anion Gap 12 0 - 18 05/16/2021 12:53 EDT [facility] GLUCOSE - [facility] 94 70 - 100 mg/dL 05/16/2021 12:53 EDT [facility] Potassium 4.0 3.5 - 5.0 mEq/L 05/16/2021 12:53 EDT CECIL TRAL [facility] Sodium 142 136 - 145 mEq/L 05/16/2021 12:53 [facility] TOTAL PROTEIN - [facility] 7.6 6.2 - 8.2 gm/dL 05/16/2021 12:53 EDT [facility] SGOT/AST - [facility] 19 14 - 36 U/L 05/16/2021 12:53 EDT [facility]ALT - [facility] 13 0 - 35 U/L 05/16/2021 12:53 EDT [facility] Specimen Anatomical Collection Method Collection Time Receive d Time (Source) Location / / Volume Laterality 05/16/2021 12:27 05/16/2021 EDT 12:30 EDT Daniel Hare PA-C CHEMISTRY & BLOOD GAS ORDERA BLES Performing Organization Address City/[facility] Code Phon e Number [facility] [address] [place] [address] (ABNORMAL) D-DIMER (05/16/2021 12:27 EDT) P athologist Signature D-Dimer 261 (HH) <230 05/16/2021 [facility] ng/mLDDU 12:50 EDT [facility] Comment: CUTOFF VALUE FOR THE EXCLUSION OF DVT an d PE: 230 ng/mL D-dimer units. Any use of the age-adjusted cutoff value is a post-analytic modification of this FDA-approved test a nd is considered off-label use of the test result. [facility] Laboratory does not have literature to support the validity of an age-adjusted cutoff for our specific assay. Specimen Anatomical Collection Method Collection Time Receive d Time (Source) Location / / Volume Laterality 05/16/2021 12:27 05/16/2021 EDT 12:30 EDT Daniel Reyes PA-C HEMATOLOGY & PF4 ORDERABLES Performing Organization Address [facility] Phon e Number [facility] [address] [place] [address] (ABNORMAL) COMPLETE BLOOD COUNT WITH DIFFERENTIAL (AUTO) (05/16/2021 12:27 EDT) Patholo gist Method Time Signature ABSOLUTE 4.7 2.2 - 8.85 05/16/2021 [facility] NEUTROPHIL COUN 10e3/uL 12:42 EDT [facility] CENTER LAB BASO # - [facility] 0.04 0.01 - 05/16/2021 [facility] 0.11 12:42 EDT [facility] 10e/uL CENTER LAB BASO % - [facility] 1 0 - 2 % 05/16/2021 [facility] 12:42 EDT [facility] EOS # - [facility] 0.28 0.03 - 05/16/2021 [facility] 0.61 12:42 EDT [facility] 10e3/ul [facility]ENTER LAB EOS % - [facility] 4 0 - 5 % 05/16/2021 [facility] 12:42 EDT [facility] GRAN % - [facility] 61.8 40 - 80 % 05/16/2021 [facility] 12:42 EDT [facility] HEMATOCRIT - 40.1 34.9 - 05/16/2021 [facility] 44.4 % 12:42 [facility] HEMOGLOBIN - 11.4 (L) 11.6 - 05/16/2021 [facility] 15.2 g/dl 12:42 [facility] IG# - [facility] 0.03 0 - 0.7 05/16/2021 [facility] 10e3/uL 12:42 [facility] IG% - [facility] 0.4 0 - 0.9 % 05/16/2021 [facility] 12:42 [facility] LYMPH # - [facility] 2.0 1.09 - 3.3 05/16/2021 [facility] 10e3/ul 12:42 [facility] LYMPH% - [facility] 26.1 20 - 40 % 05/16/2021 [facility] 12:42 [facility] MEAN CORPUSCULAR 23.3 (L) 26.7 - 05/16/2021 [facility] HGB - [facility] 33.3 pg 12:42 [facility] MEAN CORPUSCULAR 28.4 (L) 32.1 - 05/16/2021 [facility] HGB CONC - [facility] 35.9 g/dL 12:42 [facility] MEAN CELL VOLUME 81.8 81 - 98 fl 05/16/2021 [facility] - [facility] 12:42 [facility] MONO # - [facility] 0.6 0.1 - 0.8 05/16/2021 [facility] 10e3/uL 12:42 [facility] MONO% - [facility] 7.5 0 - 12 % 05/16/2021 [facility] 12:42 [facility] PLATELET COUNT 367 141 - 377 05/16/2021 [facility] 10e3/ul 12:42 [facility] RED BLOOD COUNT 4.90 3.86 - 05/16/2021 [facility] - [facility] 5.04 12:42 [facility] 10e6/ul [place] [facility] RED CELL DISTRI 14.0 <14.7 % 05/16/2021 [facility] WIDTH - [facility] 12:42 [facility] WHITE BLOOD 7.6 4.0 - 12.4 05/16/2021 [facility] COUNT - [facility] 10e3/ul 12:42 [facility] Specimen Anatomical Collection Method Collection Time Receive d Time (Source) Location / / Volume Laterality 05/16/2021 12:27 05/16/2021 EDT 12:31 EDT Daniel Reyes PA-C HEMATOLOGY & PF4 ORDERABLES Performing Organization Address City/State/ZIP Code Phon e Number [facility] [address] [place] [address] documented in this encounter Visit Diagnoses Not on filedocumented in this encounter Care Teams Communications Attendant Relationship Specialty Start Date End Date Ida Mendoza, RAIL TRACK MAINTAINER PCP - General 02/24/21 [address] [place] [address] documented as of this encounter
--- OUTSIDE RECORDS SUMMARY | 2022-07-07 00:25 | XMS_ITS | Encounter Summary ---
:2000 Author Organization [facility] Address [address] [place] [address] Care Team Providers Name Role Phone Luz Doss Primary Care Provider Encounter Details Date Type Department Care Team Description 02/08/2021 Travel Social History Tobacco Use Types Packs/Day Years Used Date Smoking Tobacco: Never Smokeless Tobacco: Never Sex Assigned at Date Recorded Not on file COVID-19 Exposure Response Date Recorded In the last month, have you been in contact with No / Unsure 02/08/2021 8:10 EDT someone who was confirmed or suspected to have Coronavirus / COVID-19? documented as of this encounter Plan of Treatment Not on filedocumented as of this encounter Visit Diagnoses Not on filedocumented in this encounter Care Teams Paper Stripper Relationship Specialty Start Date End Date Luz Doss ARNP PCP - General 12/09/20 02/23/[address] [place] [id number] documented as of this encounter
== END ==
PROVIDERS: Visit Provider Family Medicine
DX: Z34.93 Encounter for supervision of normal pregnancy, unspecified, third trimester (principal); Z36.88 Encounter for antenatal screening for fetal macrosomia
CPT/HCPCS: 76816

== ENCOUNTER 2022-08-25 05:15 | Inpatient (IN) | payer MEDICAID, SELFPAY ==
[2022-08-25] VITALS (16 sets, daily range): BP systolic 108–128; BP diastolic 60–80; PULSE 67–88; RESP 14–20; TEMP 36.7–37.4
[2022-08-25] MEDS: Oxytocin 10 UNITS/ML VIAL IM (05:27)
[2022-08-25] MEDS: Lidocaine 1% Multi-Dose 20 ML VIAL IJ (05:46)
--- NOTE | 2022-08-25 06:06 | HPE_ITS ---
Date of service: 08/25/22 Time of Service: 06:07 Assessment and Plan Assessment and plan (1) Normal labor: Status: Acute Assessment and plan: 1. Admitted to Dr. Carter for care but this provider at bedside to support and provide care while awaiting her Physician to be able to safely travel to hospital to provide care. 2. Rapid delivery occurred in normal fashion. [facility] OB-HPI Labor/Delivery History of Present Illness Reason for Visit: Labor Check Chief Complaint: Uterine Contractions. JAHAIRA Calculator Estimated Delivery Date Method WG Current Estimate 08/23/22 LMP (Certain) Other Estimates 08/22/22 Ultrasound #1 Infant Delivery Date-Baby A 08/25/22 40w 2d Comments: Silvia presents to with her parents with complaint of urge to push. She is a very pleasant young woman and appears generally healthy. At time of admission and rapid delivery automobile and property underwriter did not have access to history. She denies any chronic health issues, states she does not have diabetes or thyroid disease. Has not had pre-eclampsia. She shares that she is Rh negative. Reports contractions began around 3:30 pm on 08/24/22. Denies ROM but has had bloody show. She called to report that she was in labor to Dr. Carter around 4am but felt she needed to come in right away. Dr. Carter has been called and will attend as soon as safe travel in snow allows. See separate for complete history. LEEROY Informed Consent Informed Consent: Other (permission for this provider to attend delivery and give immediate PP care. LEEROY) Review of Systems All systems reviewed & are unremarkable except as noted in HPI and below PFSH All Active Problems (Updated 08/25/22 @ 06:34 by Ciera Lagos CNM) Normal labor (Acute) Rh negative state in antepartum period (Acute) Depression with anxiety (Acute) Obesity (Chronic) (Acute) Medical History (Updated 08/25/22 @ 06:34 by Ciera Lagos CNM) Toenail avulsion Family History Father No problems noted. Social History Smoking/Tobacco Use Status: Never Smoking risk assessment performed?: Yes Alcohol Intake: never Drug use: Never Substance use type: does not use Do you feel safe at home: Yes Do you feel safe in your relationship?: Yes History History 1 Para 0 Hx # Term Pregnancies Multiple births Hx # Pregnancies Ectopic pregnancies AB induced Hx Number of Living Children AB spontaneous Meds Allergies and Home Medications Allergies Allergy/AdvReac Type Severity Reaction Status Date / Time sumatriptan AdvReac Intermediate Other (See Verified 08/25/22 06:27 Comment) cold temperature AdvReac Intermediate urticaria Uncoded 08/25/22 06:27 Home Medications Medication Instructions Recorded Confirmed Type ondansetron 4 mg disintegrating 1 tab PO PRN PRN 03/21/22 03/21/22 History tablet pyridoxine (vitamin B6) 25 mg 25 mg PO TID #30 tabs 03/21/22 Rx tablet (Vitamin B-6) Exam Physical Exam Vital signs: Pulse BP 71 116/60 08/25/22 06:06 08/25/22 06:06 Vital Signs Reviewed: Yes Constitutional Constitutional: mild distress, obese and cooperative Detailed Labor and Delivery Exam Dilation: 10 Effacement (%): 100 station: +3 Zamora Score: Cervical Points Exam 0 1 2 3 Dilation Closed 1-2cm 3-4 cm 5-6cm Effacement 0-30% 40-50% 60-70% 80% Consistency Firm Medium Soft Station -3 -2 -1,0 +1,+2 Position Posterior Mid Anterior Amniotic Membrane Status: Intact Contraction Frequency(min): 2 Contraction Duration(sec): 60 Contraction Intensity: Strong Fetus A Date of Membrane Rupture: 08/25/22 Time of Membrane Rupture: 05:26 Assessment Note: FHR WNL, see nursing documentation. HEENT Exam HEENT Exam: Normal Neck Exam Neck Exam: Normal (normal visual exam) Chest/Brest/Axilla Exam Chest Exam: Normal Breast Exam Breast Exam: Normal Respiratory Exam Respiratory Exam: Normal Cardiovascular Exam Cardiovascular Exam: Normal Abdominal Exam Abdominal Exam: Normal (gravid, size appears to equal dates) Rectal Exam Rectal Exam: Not Done Exam Exam: Normal (bulging membranes and strong urge to push on arrival) Extremities Exam Extremities Exam: Normal Back/Spine/Pelvis Exam Back Exam: Not Done Pelvis Adequate: Yes Skin Exam Skin Exam: Normal Neurological Exam Neurological Exam: Normal Psychiatric Exam Psychiatric Exam: Normal Results Results Blood Type: A- Rubella Status: Immune Lab Results: see separate from [facility] for complete labs and history Risk Assessment Risk for Shoulder Dystocia 40 Weeks: NEGATIVE FOR: EFW> 4500 gms, Maternal Weight Gain >40lb or Post Dates Increased Risk?: No Delivery Plan @ 40 wks: actively delivering on admission Risk for Post- Hemorrhage Initial: NEGATIVE FOR: Multiple Gestation, Previous PPH, Known Clotting Deficiency, Grand Multiparity or Anticoagulation Counseled re: Active Management: Yes Date/Initials: 08/25/22 Risks Reviewed Risks Reviewed Upon Admission: Yes
[2022-08-25 06:33] LABS: HCT 38.6 % (36.0-46.0); HGB 10.8 g/dL (11.2-15.7); MCH 21.8 pg (27.0-33.0); MCV 78 fL (80-95); MPV 11.1 fL (8.0-11.0); Platelet Count 329 10^3/uL (130-400); RBC 4.95 10^6/uL (3.93-5.22); RDW 15.9 % (11.7-14.6); RDW-SD 44.8 fL
--- NOTE | 2022-08-25 06:37 | W.OBDELIVERY ---
Date of service: 08/25/22 Time of Service: 06:37 OB Labor/ Delivery Information Baby A Delivery Delivery Method: Spontaneaous Presentation: Cephalic Vertex Position: Left Occipital Anterior Cord Description-Baby A: 3 Vessels and Clamped/Cut Amniotic Fluid: Clear Estimated Blood Loss: 200 Delivery Outcome: Liveborn Infant Complications: none noted Infant Transferred: Remains with Mother Note: this provider was at the hospital and notified that Silvia arrived with involuntary urge to push and bulging membranes as well and was 10 cm. I introduced myself to Silvia and her parents who were gracious to allow me to be present while awaiting her own provider to be able to safely travel to the hospital in the snowy weather. She proceded to deliver a live female at 0526 only a few minutes after arriving over 1st degree perineal laceration. There was a nuchal and body cord that baby delivered through with ease. Baby was placed immediately skin to skin and excellent maternal bonding was observed. 10 units Pitocin was given IM. Baby had of 9 at 1 minute and 9 at 5 minutes. Delayed cord clamping for 3 minutes then cord was double clamped and cut by Patient's Mother. Placenta delivered at 0538 with maternal pushing effort, intact. Fundus firmed to U with massage. EBL 200cc. 1st degree laceration was oozing blood and was repaired under 1% local infiltration with 1 stitch of 3.0 Vicryl suture. Patient and baby are in satisfactory condition. Silvia shared that her daughter was born on her birthday! She plans to breast feed. Expect normal PP course and narrative writer gave report to patient's primary provider. Providers Nurse Sewing Department Supervisor: Ciera Lagos Nurse: Kashmir Vela Nurse: Marnie Johnson Labor/Delivery Information Number of Babies in Womb: 1 Reason Steroids Not Administered: N/A Rubella Status: Immune Blood Type: A- Stages of Labor Onset of Labor Date: 08/24/22 Onset of Labor Time: 15:43 Complete Dilatation Date: 08/25/22 Complete Dilatation Time: 05:20 Labor - Stage 1 Duration: 13 hours and 37 minutes ROM Baby A: 08/25/22 ROM Baby A: 05:26 ROM Total Time- Baby A: [id number] Delivery Date-Baby A: 08/25/22 Infant Delivery Time-Baby A: 05:26 Labor Stage 2 Duration: 6 minutes Placenta Delivery Date-Baby A: 08/25/22 Placenta Delivery Time-Baby A: 05:38 Labor-Stage 3 Duration: 12 minutes Total Length of Labor-Baby A: 13 hours and 43 minutes Baby A Infant Gender: Female Gestational Age in Weeks/Days: 40 Weeks and 2 Days Score-1 Minute Interval(Baby A) Heart Rate-1 minute: 100 BPM or Greater Respiratory Effort- 1 minute: Spontaneous/Strong Cry Muscle Tone-1 minute: Active Movement Reflex Response-1 minute: Prompt Response Color-1 minute: Bluish Hands or Feet Total Score-1 minute: 9 Score-5 Minute Interval(Baby A) Heart Rate- 5 minute: 100 BPM or Greater Respiratory Effort-5 minute: Spontaneous/Strong Cry Muscle Tone-5 minute: Active Movement Reflex Response-5 minute: Prompt Response Color-5 minute: Bluish Hands or Feet Total Score- 5 minute: 9
[2022-08-25 06:39] LABS: Source Nasal/Nares
[2022-08-25 07:39] LABS: COVID-19 PCR Negative (Negative)
[2022-08-25] MEDS: Acetaminophen 325 MG TAB 650 MG PO (16:47)
[2022-08-26 08:00] VITALS: BP 130/85; PULSE 107; RESP 16; TEMP 37.4
--- NOTE | 2022-08-26 13:34 | W.PM.OBPNV1 ---
Date of service: 08/26/22 Time of Service: 13:34 Assessment and Plan Assessment and plan (1) : Status: Acute Assessment and plan: Doing well PP day 1. Lochia moderate, pain well controlled. Nursing going well, and improving, continues to work with . I would like her to stay one more day to establish good feeding pattern and bonding, feel comfortable going home. Mood good. Mom here for support. Continue current plan. Anticipate DC tomorrow. (2) Depression with anxiety: Status: Acute Subjective Subjective Interval history: doing well, pain well controlled, moderate lochia, minimal edema, passing flatus, voiding well. Patient comments: No complaints [place] baby status: Doing well, Nursing well, Rooming in and Strong Bonding Observed feeding status: Exclusively breast feeding Exam Physical Exam Vital signs: Temp Pulse Resp BP 37.4 C 107 H 16 130/85 08/26/22 08:00 08/26/22 08:00 08/26/22 08:00 08/26/22 08:00 Vital Signs Reviewed: Yes Results Hemoglobin/Hematocrit: Hgb 10.8 g/dL (11.2-15.7) L 08/25/22 06:20 Hct 38.6 % (36.0-46.0) 08/25/22 06:20 Abnormal Lab Findings: Abnormal Labs 08/25/22 06:20 WBC 11.70 H Hgb 10.8 L MCV 78 L MCH 21.8 L MCHC 28.0 L RDW 15.9 H MPV 11.1 H
[2022-08-26] MEDS: Acetaminophen 325 MG TAB 650 MG PO (23:22)
[2022-08-27 02:15] VITALS: BP 126/72; PULSE 84; RESP 16; TEMP 36
[2022-08-27 09:17] VITALS: BP 140/86; PULSE 118; RESP 20; TEMP 37.9
--- NOTE | 2022-08-27 10:51 | W.PM.OBDISCH ---
Date of service: 08/27/22 Time of Service: 10:52 DS: Diagnosis Discharge Diagnosis (1) : Status: Acute Asessment and Plan: Doing well, lochia moderate. Nursing going well, working on latch. Pumping as well. Voiding well, passing shane. up and about without dizziness. Pain well controlled. DC home today with fup tomorrow. (2) Depression with anxiety: Status: Acute Discharge Plan Disposition Patient Disposition: Home Condition: Good Discharge Details Reason For Visit: Active Labor at Term Admit Date/Time: 08/25/22 05:15 Admit Provider: Caleb Carter Attending Provider: Caleb Carter Primary Care Provider: Unknown,Unknown Hospital Course Hospital Course: see note Home Meds and New Rx's Prescriptions: No Action ondansetron 4 mg tablet,disintegrating 1 tab PO PRN PRN Label Comments: DISSOLVE 1 TABLET IN MOUTH EVERY 4 TO 6 HOURS FOR 7 DAYS pyridoxine (vitamin B6) [Vitamin B-6] 25 mg tablet 25 mg PO TID Qty: 30 0RF Discharge Instructions Stand Alone Forms: BC Post Vaginal Deliver Activity:: Activity as Tolerated Equipment/Supplies:: No Equipment Needed Diet:: As Tolerated Discharge Orders Discharge Orders: Discharge Order (Routine); Ordered 08/27/22 Ordered By: Anthony Bassett OB:DS Summary Summary Vaginal Delivery Method: Spontaneaous Episiotomy Description: None Laceration Description: None Laceration Extension: N/A complications OB DS: none Time spent discussing smoking cessation with patient: 3 to 10 minutes Contraception Discussed Contraception Discussed: Yes Contraceptive Plan: Control Pill/Patch, Gender-Baby A: Female weight: 3565 g Disposition of Baby A: Home Status at Discharge Functional status at discharge: independent ambulation Overall status at discharge: patient is progressing back to baseline Mental Status: mental status grossly normal Speech and Movement: speech and movement normal Mood: congruent mood Affect: normal affect Time Spent with Patient providing and/or coordinating discharge services: Less than 30 minutes Hospital Course Pt presented in active labor, complete, and delivered via 10 minutes after arrival. Uncomplicated post course. Lochia and pain well controlled. Voiding and passing shane. Working on nursing, somewhat tender. Pumping as well. Good [place] with baby, and support from mom. DC home today, follow up in clinic tomorrow. Exam Physical Exam Vital signs: Temp Pulse Resp BP 37.9 C H 118 H 20 140/86 08/27/22 09:17 08/27/22 09:17 08/27/22 09:17 08/27/22 09:17 Vital Signs Reviewed: Yes Constitutional Constitutional: no acute distress HEENT Exam HEENT Exam: Normal Respiratory Exam Respiratory Exam: Normal Cardiovascular Exam Cardiovascular Exam: Normal Fundal Exam Fundus: Below Umbilicus and Firm Extremities Exam Extremity Exam: Normal Skin Exam Skin Exam: Normal Neurological Exam Neurological Exam: Normal Psychiatric Exam Psychiatric Exam: Normal PFSH All Active Problems (Updated 08/25/22 @ 06:34 by Ciera aLgos CNM) Normal labor (Acute) Rh negative state in antepartum period (Acute) Depression with anxiety (Acute) Obesity (Chronic) (Acute) Medical History (Updated 08/25/22 @ 06:34 by Ciera Lagos CNM) Toenail avulsion Family History (Updated 08/25/22 @ 06:31 by Ciera Lagos CNM) Father No problems noted. Social History Smoking/Tobacco Use Status: Never Smoking risk assessment performed?: Yes Alcohol Intake: never Drug use: Never Substance use type: does not use Do you feel safe at home: Yes Do you feel safe in your relationship?: Yes History History 1 Para 0 Hx # Term Pregnancies Multiple births Hx # Pregnancies Ectopic pregnancies AB induced Hx Number of Living Children AB spontaneous DS: Data Vitals/I&O Vitals and I&O: Vital Signs Temperature 37.9 C H 08/27/22 09:17 Pulse 118 H 08/27/22 09:17 Pulse Rhythm Regular 08/27/22 09:17 Respiratory Rate 20 08/27/22 09:17 Respiratory Depth Normal 08/27/22 09:17 Blood Pressure 140/86 08/27/22 09:17 Blood Pressure Mean 104 08/27/22 09:17 Pain Level 2 08/27/22 09:17 Intake & Output 08/26/22 08/26/22 08/27/22 11:59 23:59 11:59 Other: Urine Color Yellow
[2022-08-27 12:03] VITALS: BP 111/74; PULSE 97; RESP 16; TEMP 37.9; O2SAT 98
[2022-08-27] MEDS: Acetaminophen 325 MG TAB 650 MG PO (12:07)
[2022-08-27 13:09] VITALS: TEMP 37.5
== END 2022-08-27 13:35 | disposition home or self-care (01) | DRG 807 ==
PROVIDERS: Advanced Practice Midwife; Admitting Provider Family Medicine; Visit Provider Family Medicine
DX: O36.0930 Maternal care for other rhesus isoimmunization, third trimester, not applicable or unspecified (principal); Z37.0 Single live birth; O99.214 Obesity complicating childbirth; Z3A.40 40 weeks gestation of pregnancy; E66.9 Obesity, unspecified; O99.344 Other mental disorders complicating childbirth; F41.8 Other specified anxiety disorders; O69.81X0 Labor and delivery complicated by cord around neck, without compression, not applicable or unspecified; O70.0 First degree perineal laceration during delivery
CPT/HCPCS: 36415; 85027; 85461; 86850; 86900; 86901; 87635; 90384; J2590; J2790